=== PATIENT | female | born 1960 | race Caucasian/White ===

== ENCOUNTER 2017-07-14 10:39 | Emergency (ER) | payer MEDICARE, MEDICAID ==
[~2017-07-14] VITALS: Ht 165.1 cm; Wt 59.4 kg
[~2017-07-14 10:39] MED LIST: ALPR-624 PO; BALS750C PO; BUTA1CAP42 PO; ONDA4TAB9 SL; PANT40TA39 PO; SENN-173 PO; TIZA4TAB11 PO; TOPI100T18 PO; ZOLP10TA5 PO
[2017-07-14 10:57] VITALS: BP 142/80
[2017-07-14 11:33] LABS: CLARITY,URINE SLIGHTLY CLOUDY (Clear); COLOR,URINE STRAW (Yellow); GLUCOSE, URINE NEGATIVE (Neg); KETONES,URINE NEGATIVE (Neg); LEUKOCYTE ESTERASE ,URINE NEGATIVE (Neg); NITRITES, URINE NEGATIVE (Neg); OCCULT BLOOD,URINE NEGATIVE (Neg); PROTEIN,URINE NEGATIVE (Neg); UA COLLECTION TYPE CLN CATCH MIDSTREAM; UROBILINOGEN,URINE 0.2 E.U/dL (0.2-1.0)
[2017-07-14 11:42] LABS: BACTERIA,URINE FEW /HPF (Neg); MUCUS STRANDS FEW /LPF (Neg); RBC,URINE 0-2 /HPF (0-2); SQUAMOUS EPITHELIAL CELL,UR MANY /LPF (FEW); WBC,URINE 0-4 /HPF (0-4)
[2017-07-14 11:43] LABS: BASOPHILS % (AUTO) 0.2 % (0-1); EOSINOPHILS # (AUTO) 0.1 X10'3 (0-0.9); EOSINOPHILS % (AUTO) 1.5 % (0-6); HEMATOCRIT 31.7 % (35.0-45.0); HEMOGLOBIN 10.8 g/dl (12.0-16.0); LYMPHOCYTES # (AUTO) 1.5 X10'3 (1.1-4.8); LYMPHOCYTES % (AUTO) 42.1 % (21-51); MEAN CORPUSCULAR HEMOGLOBIN 30.5 PG (27.0-31.0); MEAN CORPUSCULAR HGB CONC 34.2 % (33.0-36.5); MEAN CORPUSCULAR VOLUME 89.3 FL (78-98); MEAN PLATELET VOLUME 7.4 FL (7.4-10.4); MONOCYTES # (AUTO) 0.1 X10'3 (0-0.9); MONOCYTES % (AUTO) 3.9 % (2-12); NEUTROPHILS # (AUTO) 1.9 X10'3 (1.8-7.7); NEUTROPHILS % (AUTO) 52.3 % (42-75); PLATELET COUNT 251 X10'3 (140-440); RED BLOOD COUNT 3.55 X10'6 (4.20-5.60); RED CELL DISTRIBUTION WIDTH 17.7 % (11.5-14.5); WHITE BLOOD COUNT 3.6 X10'3 (4.5-11.0)
[2017-07-14 11:52] LABS: INR 0.9 INR; PROTHROMBIN TIME 9.8 SECONDS (9.0-12.0)
[2017-07-14 11:58] LABS: ALANINE AMINOTRANSFERASE 18 U/L (12-78); ALBUMIN 4.7 G/DL (3.4-5.0); ALBUMIN/GLOBULIN RATIO 1.6 (1.1-1.5); ALKALINE PHOSPHATASE 64 IU/L (46-116); ANION GAP 13 (8-16); ASPARTATE AMINO TRANSFERASE 23 U/L (10-37); BILIRUBIN,TOTAL 0.4 MG/DL (0.1-1.0); BLOOD UREA NITROGEN 18 MG/DL (7-18); BUN/CREATININE RATIO 18.4 (6.6-38.0); CALCIUM 8.9 MG/DL (8.5-10.1); CHLORIDE 107 MMOL/L (99-107); CREATININE 0.98 MG/DL (0.40-0.90); GLUCOSE 102 MG/DL (70-104); POTASSIUM 4.5 MMOL/L (3.5-5.1); SODIUM 141 MMOL/L (135-145); TOTAL CARBON DIOXIDE 20.6 MMOL/L (24-32); TOTAL PROTEIN 7.6 G/DL (6.4-8.2); eGFR 59 ML/MIN
== END 2017-07-14 13:03 | disposition home or self-care (01) ==
LOC: ER 10:39
DX: E78.00 Pure hypercholesterolemia, unspecified (principal); N18.3 Chronic kidney disease, stage 3 (moderate); G89.29 Other chronic pain; Z90.49 Acquired absence of other specified parts of digestive tract; Z98.890 Other specified postprocedural states; Z88.2 Allergy status to sulfonamides; Z79.899 Other long term (current) drug therapy
CPT/HCPCS: 36415; 80053; 81001; 85025; 85610; 99284

== ENCOUNTER 2018-05-31 09:45 | Emergency (ER) | payer MEDICARE, MEDICAID ==
[~2018-05-31] VITALS: Ht 165.1 cm; Wt 55.5 kg
[~2018-05-31 09:45] MED LIST changes: +TOP100T PO; -TOPI100T18 PO
[2018-05-31] MEDS ORDERED: ondansetron/PF 4mg/2ml inj IV ONE (10:05)
[2018-05-31] MEDS ORDERED: normal saline 1000ML IV soln IVB ONE (10:05)
[2018-05-31 10:23] LABS: CLARITY,URINE CLEAR (Clear); COLOR,URINE YELLOW (Yellow); GLUCOSE, URINE NEGATIVE (Neg); KETONES,URINE NEGATIVE (Neg); LEUKOCYTE ESTERASE ,URINE NEGATIVE (Neg); NITRITES, URINE NEGATIVE (Neg); OCCULT BLOOD,URINE NEGATIVE (Neg); PH,URINE 5.5 (4.8-8.0); PROTEIN,URINE NEGATIVE (Neg); UROBILINOGEN,URINE 0.2 E.U/dL (0.2-1.0)
[2018-05-31 10:24] LABS: UA COLLECTION TYPE CLN CATCH MIDSTREAM
[2018-05-31 10:27] LABS: URINE HCG NEGATIVE (NEG)
[2018-05-31] MEDS: morphine 4 MG/ML inj SYRINge IV PRN ×2 (10:29→11:45)
--- NOTE | 2018-05-31 10:32 | NUR ---
morphine and zofran given
[2018-05-31 10:40] LABS: BASOPHILS % (AUTO) 0.8 % (0-1); EOSINOPHILS # (AUTO) 0.1 X10'3 (0-0.9); HEMOGLOBIN 10.5 g/dl (12.0-16.0); MEAN CORPUSCULAR HEMOGLOBIN 32.3 PG (27.0-31.0); MEAN CORPUSCULAR HGB CONC 33.9 g/dL (33.0-36.5); MEAN CORPUSCULAR VOLUME 95.3 FL (78-98); MEAN PLATELET VOLUME 7.2 FL (7.4-10.4); MONOCYTES # (AUTO) 0.2 X10'3 (0-0.9); MONOCYTES % (AUTO) 6.6 % (2-12); NEUTROPHILS # (AUTO) 1.5 X10'3 (1.8-7.7); NEUTROPHILS % (AUTO) 55.6 % (42-75); PLATELET COUNT 250 X10'3 (140-440); RED BLOOD COUNT 3.25 X10'6 (4.20-5.60); RED CELL DISTRIBUTION WIDTH 15.1 % (11.5-14.5); WHITE BLOOD COUNT 2.7 X10'3 (4.5-11.0)
[2018-05-31 10:48] LABS: ALANINE AMINOTRANSFERASE 16 U/L (12-78); ALBUMIN 4.4 G/DL (3.4-5.0); ALBUMIN/GLOBULIN RATIO 1.6 (1.1-1.5); ALKALINE PHOSPHATASE 54 IU/L (46-116); ANION GAP 16 (8-16); ASPARTATE AMINO TRANSFERASE 13 U/L (10-37); BILIRUBIN,TOTAL 0.4 MG/DL (0.1-1.0); BLOOD UREA NITROGEN 17 MG/DL (7-18); BUN/CREATININE RATIO 16.5 (6.6-38.0); CALCIUM 8.7 MG/DL (8.5-10.1); CHLORIDE 105 MMOL/L (99-107); CREATININE 1.03 MG/DL (0.40-0.90); GLUCOSE 105 MG/DL (70-104); LIPASE 237 U/L (73-393); POTASSIUM 3.8 MMOL/L (3.5-5.1); SODIUM 139 MMOL/L (135-145); TOTAL PROTEIN 7.1 G/DL (6.4-8.2); eGFR 55 ML/MIN
[2018-05-31 10:57] LABS: PROTHROMBIN TIME 10.1 SECONDS (9.0-12.0)
[2018-05-31 11:10] LABS: PLATELET ESTIMATE NORMAL; TOTAL CELLS COUNTED 100
[2018-05-31] MEDS ORDERED: famotidine/PF 10 mg/ml inj IV ONE (11:10)
[2018-05-31] MEDS ORDERED: methylPREDNISolone sod succ 125mg/2ml vial IV ONE (11:10)
[2018-05-31] MEDS ORDERED: morphine 4 MG/ML inj SYRINge IV ONE (11:10)
[2018-05-31] MEDS ORDERED: CIPR-260 PO (11:27)
[2018-05-31] MEDS ORDERED: ONDA4TAB6 PO (11:27)
[2018-05-31] MEDS ORDERED: HYDR-4383 PO (11:27)
[2018-05-31] MEDS ORDERED: PRED10TA23 PO (11:27)
[2018-05-31 12:31] VITALS: BP 134/81
== END 2018-05-31 12:15 | disposition home or self-care (01) ==
LOC: ER 09:45
DX: R10.12 Left upper quadrant pain (principal); R10.32 Left lower quadrant pain; R11.0 Nausea; E78.00 Pure hypercholesterolemia, unspecified; N18.9 Chronic kidney disease, unspecified; G89.29 Other chronic pain; Z90.49 Acquired absence of other specified parts of digestive tract; Z90.710 Acquired absence of both cervix and uterus; Z98.890 Other specified postprocedural states; Z88.2 Allergy status to sulfonamides; Z88.8 Allergy status to other drugs, medicaments and biological substances; Z79.899 Other long term (current) drug therapy
CPT/HCPCS: 36415; 74176; 80053; 81003; 81025; 83690; 85025; 85610; 96374; 96375; 96376; 99284; J2270; J2405; J2930; J3490; J7030

== ENCOUNTER 2018-10-25 10:31 | Emergency (ER) | payer MEDICARE, MEDICAID ==
[~2018-10-25] VITALS: Ht 165.1 cm; Wt 56.8 kg
[~2018-10-25 10:31] MED LIST changes: +BUTA-281 PO; +CIPR-260 PO; +HYDR-4383 PO; +MECL-111 PO; +ONDA4TAB6 PO
[2018-10-25] MEDS ORDERED: ondansetron/PF 4mg/2ml inj IV ONE (10:50)
[2018-10-25] MEDS ORDERED: normal saline 1000ML IV soln IVB ONE (10:50)
[2018-10-25] MEDS ORDERED: HYDROcodone/acetaminophen 5mg/325mg tablet PO ONE (11:10)
[2018-10-25] MEDS ORDERED: LORazepam 2 mg/ml vial IV ONE (11:10)
[2018-10-25 11:14] LABS: HEMATOCRIT 27.8 % (35.0-45.0); HEMOGLOBIN 8.7 g/dl (12.0-16.0); MEAN CORPUSCULAR HEMOGLOBIN 27.5 PG (27.0-31.0); MEAN CORPUSCULAR HGB CONC 31.3 g/dL (33.0-36.5); MONOCYTES # (AUTO) 0.2 X10'3 (0-0.9); NEUTROPHILS # (AUTO) 1.3 X10'3 (1.8-7.7); RED BLOOD COUNT 3.16 X10'6 (4.20-5.60)
[2018-10-25 11:15] LABS: MEAN PLATELET VOLUME 7.2 FL (7.4-10.4); PLATELET COUNT 296 X10'3 (140-440); RED CELL DISTRIBUTION WIDTH 17.3 % (11.5-14.5)
[2018-10-25 11:15] LABS: CLARITY,URINE CLEAR (Clear); COLOR,URINE YELLOW (Yellow); GLUCOSE, URINE NEGATIVE (Neg); KETONES,URINE NEGATIVE (Neg); LEUKOCYTE ESTERASE ,URINE NEGATIVE (Neg); NITRITES, URINE NEGATIVE (Neg); OCCULT BLOOD,URINE NEGATIVE (Neg); PH,URINE 5.5 (4.8-8.0); PROTEIN,URINE NEGATIVE (Neg); UROBILINOGEN,URINE 0.2 E.U/dL (0.2-1.0)
[2018-10-25 11:18] LABS: UA COLLECTION TYPE CLN CATCH MIDSTREAM
[2018-10-25 11:20] LABS: WHITE BLOOD COUNT 2.3 X10'3 (4.5-11.0)
[2018-10-25 11:21] LABS: BASOPHILS % (AUTO) 0.6 % (0-1); EOSINOPHILS % (AUTO) 1.2 % (0-6); LYMPHOCYTES # (AUTO) 0.9 X10'3 (1.1-4.8); LYMPHOCYTES % (AUTO) 37.7 % (21-51); MONOCYTES % (AUTO) 6.6 % (2-12); NEUTROPHILS % (AUTO) 53.9 % (42-75)
[2018-10-25 11:25] LABS: URINE HCG NEGATIVE (NEG)
[2018-10-25 11:29] LABS: ALANINE AMINOTRANSFERASE 19 U/L (12-78); ALBUMIN 4.8 G/DL (3.4-5.0); ALBUMIN/GLOBULIN RATIO 1.6 (1.1-1.5); ALKALINE PHOSPHATASE 62 IU/L (46-116); ANION GAP 15 (8-16); ASPARTATE AMINO TRANSFERASE 15 U/L (10-37); BILIRUBIN,TOTAL 0.3 MG/DL (0.1-1.0); BLOOD UREA NITROGEN 15 MG/DL (7-18); BUN/CREATININE RATIO 12.7 (6.6-38.0); CHLORIDE 109 MMOL/L (99-107); CREATININE 1.18 MG/DL (0.40-0.90); GLUCOSE 106 MG/DL (70-104); LIPASE 258 U/L (73-393); POTASSIUM 3.8 MMOL/L (3.5-5.1); SODIUM 141 MMOL/L (135-145); TOTAL CARBON DIOXIDE 17.2 MMOL/L (24-32); TOTAL PROTEIN 7.8 G/DL (6.4-8.2); eGFR 47 ML/MIN
[2018-10-25] MEDS ORDERED: morphine 4 MG/ML inj SYRINge IV ONE (12:05)
[2018-10-25] MEDS ORDERED: diphenhydrAMINE 50 mg/ml inj IV ONE (12:25)
[2018-10-25] MEDS ORDERED: proMETHazine 25mg tablet PO ONE (12:25)
[2018-10-25] MEDS ORDERED: PROM25SU46 RC (13:33)
[2018-10-25] MEDS ORDERED: ONDA8TAB6 PO (13:33)
[2018-10-25] MEDS ORDERED: HYDR-3965 PO (13:33)
[2018-10-25] MEDS ORDERED: ketorolac trometh. 30mg/ml inj. IV ONE (13:35)
[2018-10-25 13:57] LABS: ANISOCYTOSIS 1+; PLATELET ESTIMATE NORMAL; TOTAL CELLS COUNTED 100
[2018-10-25 13:58] VITALS: BP 149/93
[2018-10-25 13:58] LABS: BURR CELLS FEW; ELLIPTOCYTES FEW; SCHISTOCYTES FEW; TEAR DROP CELLS FEW
== END 2018-10-25 14:11 | disposition home or self-care (01) ==
LOC: ER 10:32
DX: K29.00 Acute gastritis without bleeding (principal); D64.9 Anemia, unspecified; E78.00 Pure hypercholesterolemia, unspecified; N18.9 Chronic kidney disease, unspecified; G89.29 Other chronic pain; F41.9 Anxiety disorder, unspecified; Z90.49 Acquired absence of other specified parts of digestive tract; Z90.710 Acquired absence of both cervix and uterus; Z98.890 Other specified postprocedural states; Z88.2 Allergy status to sulfonamides; Z88.6 Allergy status to analgesic agent; Z88.8 Allergy status to other drugs, medicaments and biological substances; Z79.2 Long term (current) use of antibiotics; Z79.899 Other long term (current) drug therapy
CPT/HCPCS: 36415; 74176; 80053; 81003; 81025; 83690; 85025; 85610; 96361; 96374; 96375; 99284; J1200; J1885; J2060; J2270; J2405; J7030; Q0169

== ENCOUNTER 2019-01-08 15:17 | Inpatient (IN) | payer MEDICARE, MEDICAID ==
[~2019-01-08] VITALS: Ht 165.1 cm; Wt 55.0 kg
[~2019-01-08 15:17] MED LIST changes: +ONDA8TAB6 PO; +PROM25SU46 RC
[2019-01-08 16:20] LABS: BASOPHILS % (AUTO) 0.8 % (0-1); EOSINOPHILS # (AUTO) 0.1 X10'3 (0-0.9); EOSINOPHILS % (AUTO) 1.1 % (0-6); LYMPHOCYTES # (AUTO) 1.3 X10'3 (1.1-4.8); LYMPHOCYTES % (AUTO) 26.3 % (21-51); MEAN CORPUSCULAR HEMOGLOBIN 23.7 PG (27.0-31.0); MEAN CORPUSCULAR HGB CONC 30.4 g/dL (33.0-36.5); MEAN CORPUSCULAR VOLUME 77.9 FL (78-98); MEAN PLATELET VOLUME 7.6 FL (7.4-10.4); MONOCYTES # (AUTO) 0.2 X10'3 (0-0.9); MONOCYTES % (AUTO) 4.1 % (2-12); NEUTROPHILS # (AUTO) 3.3 X10'3 (1.8-7.7); NEUTROPHILS % (AUTO) 67.7 % (42-75); PLATELET COUNT 238 X10'3 (140-440); RED BLOOD COUNT 2.55 X10'6 (4.20-5.60); RED CELL DISTRIBUTION WIDTH 18.1 % (11.5-14.5); WHITE BLOOD COUNT 4.8 X10'3 (4.5-11.0)
[2019-01-08 16:23] LABS: HEMATOCRIT 19.8 % (35.0-45.0)
[2019-01-08 16:45] LABS: ALANINE AMINOTRANSFERASE 28 U/L (12-78); ALBUMIN 4.6 G/DL (3.4-5.0); ALBUMIN/GLOBULIN RATIO 1.5 (1.1-1.5); ALKALINE PHOSPHATASE 84 IU/L (46-116); ANION GAP 12 (8-16); ASPARTATE AMINO TRANSFERASE 25 U/L (10-37); BILIRUBIN,TOTAL 0.2 MG/DL (0.1-1.0); BLOOD UREA NITROGEN 12 MG/DL (7-18); BUN/CREATININE RATIO 13.3 (6.6-38.0); CALCIUM 8.8 MG/DL (8.5-10.1); CHLORIDE 109 MMOL/L (99-107); GLUCOSE 97 MG/DL (70-104); POTASSIUM 3.7 MMOL/L (3.5-5.1); SODIUM 142 MMOL/L (135-145); TOTAL CARBON DIOXIDE 21.1 MMOL/L (24-32); TOTAL PROTEIN 7.7 G/DL (6.4-8.2); eGFR 65 ML/MIN
[2019-01-08 17:01] LABS: ANISOCYTOSIS 2+; HYPOCHROMASIA 2+; MICROCYTOSIS 1+; PLATELET ESTIMATE NORMAL; TEAR DROP CELLS FEW
[2019-01-08 17:02] LABS: ELLIPTOCYTES FEW
[2019-01-08 17:14] LABS: CLARITY,URINE CLEAR (Clear); COLOR,URINE STRAW (Yellow); GLUCOSE, URINE NEGATIVE (Neg); KETONES,URINE NEGATIVE (Neg); LEUKOCYTE ESTERASE ,URINE NEGATIVE (Neg); NITRITES, URINE NEGATIVE (Neg); OCCULT BLOOD,URINE NEGATIVE (Neg); PH,URINE 5.5 (4.8-8.0); PROTEIN,URINE NEGATIVE (Neg); UROBILINOGEN,URINE 0.2 E.U/dL (0.2-1.0)
[2019-01-08 17:15] LABS: URINE HCG NEGATIVE (NEG)
[2019-01-08 17:18] LABS: UA COLLECTION TYPE CLN CATCH MIDSTREAM
[2019-01-08] MEDS ORDERED: morphine 4 MG/ML inj SYRINge IV ONE (19:00)
[2019-01-08] MEDS ORDERED: morphine 10mg/ml inj. IV ONE (19:00)
[2019-01-08] MEDS ORDERED: ondansetron/PF 4mg/2ml inj IV ONE (19:25)
[2019-01-08] MEDS ORDERED: magnesium Cl slow-release 64mg tablet PO PRN (19:45)
[2019-01-08] MEDS ORDERED: acetaminophen 325mg tablet PO PRN (19:45)
[2019-01-08] MEDS ORDERED: magnesium 4gm in 100ml NS 100 ML IV PRN (19:45)
[2019-01-08] MEDS ORDERED: magnesium 2GM in 50ml NS 50 ML IV PRN (19:45)
[2019-01-08] MEDS ORDERED: potassium Cl 20 mEq SR tablet PO PRN (19:45)
[2019-01-08] MEDS ORDERED: potassium CL 10mEq/100ml bag 100 ML IV PRN ×2 (19:45)
[2019-01-08] MEDS ORDERED: magnesium hydroxide 30ml (MOM) UD suspension PO PRN (19:45)
[2019-01-08 20:46] VITALS: BP 154/92
[2019-01-08] MEDS: normal saline 1000ml 1,000 ML IV SCH (20:50)
[2019-01-08] MEDS: methylPREDNISolone sod succ/PF 40mg inj. IV SCH ×2 (20:50→23:14)
[2019-01-08] MEDS: pantoprazole 40MG/NS 100ML BAG 100 ML IV SCH (20:50)
[2019-01-08 20:53] LABS: MEAN CORPUSCULAR HEMOGLOBIN 23.5 PG (27.0-31.0); MEAN CORPUSCULAR HGB CONC 30.4 g/dL (33.0-36.5); MEAN CORPUSCULAR VOLUME 77.5 FL (78-98); MEAN PLATELET VOLUME 7.8 FL (7.4-10.4); PLATELET COUNT 269 X10'3 (140-440); RED CELL DISTRIBUTION WIDTH 18.1 % (11.5-14.5); WHITE BLOOD COUNT 6.4 X10'3 (4.5-11.0)
[2019-01-08 20:58] LABS: HEMATOCRIT 19.3 % (35.0-45.0); HEMOGLOBIN 5.9 g/dl (12.0-16.0)
[2019-01-08] MEDS: ALPRAZolam 0.5mg tablet PO PRN (20:58)
[2019-01-08] MEDS ORDERED: zolpidem 5mg tablet PO SCH (21:00)
[2019-01-08 21:02] VITALS: BP 141/78
[2019-01-08 21:17] VITALS: BP 140/81
--- NOTE | 2019-01-08 21:27 | NUR ---
Received report from MICHELE Lozano. Awaiting patient arrival to the floor.
[2019-01-08 21:45] VITALS: BP 147/84
--- NOTE | 2019-01-08 21:45 | NUR ---
Patient arrived to the floor via adalidrvahe accompanied by MICHELE Craft. Placed in room 347A. Patient is awake and alert on room air, in no apparent distress. Call light and items of frequent use within reach. Will continue to monitor.
[2019-01-08] MEDS: diatr meglu/diatrizoate 30ml oral sol.-(3 dose) bottle PO SCH (22:00)
[2019-01-08 22:20] VITALS: BP 150/82
[2019-01-08] MEDS: ondansetron/PF 4mg/2ml inj IV PRN (23:14)
[2019-01-08] MEDS: HYDROmorphone inj. 0.5 MG/0.5 ML DISP.SYRIN IV PRN (23:15)
[2019-01-08 23:34] VITALS: BP 139/81
[2019-01-09] VITALS (9 sets, daily range): BP systolic 109–164; BP diastolic 79–87
[2019-01-09] MEDS: pantoprazole 40MG/NS 100ML BAG 100 ML IV SCH ×6 (01:58→22:39)
[2019-01-09] MEDS ORDERED: ZOLP10TA5 PO (03:05)
[2019-01-09] MEDS ORDERED: TIZA4TAB11 PO (03:05)
[2019-01-09] MEDS ORDERED: TOP100T PO ×2 (03:05→03:13)
[2019-01-09] MEDS: HYDROmorphone inj. 0.5 MG/0.5 ML DISP.SYRIN IV PRN ×2 (03:35→08:25)
[2019-01-09 05:40] LABS: HEMATOCRIT 26.7 % (35.0-45.0); HEMOGLOBIN 8.6 g/dl (12.0-16.0); MEAN CORPUSCULAR HEMOGLOBIN 26.5 PG (27.0-31.0); MEAN CORPUSCULAR HGB CONC 32.3 g/dL (33.0-36.5); MEAN PLATELET VOLUME 8.2 FL (7.4-10.4); PLATELET COUNT 194 X10'3 (140-440); RED BLOOD COUNT 3.26 X10'6 (4.20-5.60); RED CELL DISTRIBUTION WIDTH 17.2 % (11.5-14.5); WHITE BLOOD COUNT 5.4 X10'3 (4.5-11.0)
[2019-01-09] MEDS: normal saline 1000ml 1,000 ML IV SCH ×3 (05:45→17:30)
[2019-01-09 05:56] LABS: ALANINE AMINOTRANSFERASE 25 U/L (12-78); ALBUMIN 3.9 G/DL (3.4-5.0); ALBUMIN/GLOBULIN RATIO 1.3 (1.1-1.5); ALKALINE PHOSPHATASE 78 IU/L (46-116); ANION GAP 13 (8-16); ASPARTATE AMINO TRANSFERASE 19 U/L (10-37); BILIRUBIN,TOTAL 0.3 MG/DL (0.1-1.0); BLOOD UREA NITROGEN 10 MG/DL (7-18); BUN/CREATININE RATIO 12.8 (6.6-38.0); CHLORIDE 109 MMOL/L (99-107); CREATININE 0.78 MG/DL (0.40-0.90); GLUCOSE 125 MG/DL (70-104); MAGNESIUM 1.8 MG/DL (1.5-2.4); POTASSIUM 3.7 MMOL/L (3.5-5.1); SODIUM 141 MMOL/L (135-145); TOTAL CARBON DIOXIDE 18.9 MMOL/L (24-32); TOTAL PROTEIN 6.9 G/DL (6.4-8.2); eGFR 76 ML/MIN
--- NOTE | 2019-01-09 06:35 | NUR ---
Problems reprioritized. Patient report given, questions answered & plan of care reviewed with MICHELE Brush.
[2019-01-09] MEDS: diatr meglu/diatrizoate 30ml oral sol.-(3 dose) bottle PO SCH ×2 (07:11→10:49)
[2019-01-09] MEDS: K and/or MAG REPLACEMENT MC SCH (08:00)
[2019-01-09] MEDS ORDERED: tizanidine 4mg tablet PO PRN (08:00)
[2019-01-09] MEDS: Balsalazide Disodium 750 MG CAPSULE PO SCH ×3 (08:00→21:14)
[2019-01-09 08:02] LABS: HEMATOCRIT 31.3 % (35.0-45.0); MEAN CORPUSCULAR HEMOGLOBIN 26.1 PG (27.0-31.0); MEAN CORPUSCULAR HGB CONC 31.8 g/dL (33.0-36.5); MEAN CORPUSCULAR VOLUME 81.9 FL (78-98); MEAN PLATELET VOLUME 8.1 FL (7.4-10.4); PLATELET COUNT 221 X10'3 (140-440); RED BLOOD COUNT 3.82 X10'6 (4.20-5.60); RED CELL DISTRIBUTION WIDTH 17.5 % (11.5-14.5); WHITE BLOOD COUNT 5.9 X10'3 (4.5-11.0)
--- NOTE | 2019-01-09 08:22 | NUR ---
Page sent to regarding PRN rx for headache. PAGER ID: [phone] MESSAGE: re [phone] Irasema Dunn. patient c/o headache and is requesting Tylenol. thank you, Mona,[phone]
[2019-01-09] MEDS: ondansetron/PF 4mg/2ml inj IV PRN ×3 (08:24→21:57)
[2019-01-09] MEDS: methylPREDNISolone sod succ/PF 40mg inj. IV SCH ×3 (08:24→23:28)
[2019-01-09] MEDS: topiramate 100mg tablet PO SCH ×2 (08:24→20:54)
[2019-01-09] MEDS ORDERED: iohexol 300mg/ml 100ml inj. ONE (08:55)
[2019-01-09 13:23] LABS: HEMATOCRIT 26.5 % (35.0-45.0); HEMOGLOBIN 8.5 g/dl (12.0-16.0); MEAN CORPUSCULAR HEMOGLOBIN 26.2 PG (27.0-31.0); MEAN CORPUSCULAR HGB CONC 32.1 g/dL (33.0-36.5); MEAN CORPUSCULAR VOLUME 81.6 FL (78-98); MEAN PLATELET VOLUME 7.5 FL (7.4-10.4); PLATELET COUNT 201 X10'3 (140-440); RED BLOOD COUNT 3.25 X10'6 (4.20-5.60); RED CELL DISTRIBUTION WIDTH 17.2 % (11.5-14.5)
[2019-01-09] MEDS: acetaminophen 325mg tablet PO PRN ×2 (13:48→21:17)
[2019-01-09] MEDS: ALPRAZolam 0.5mg tablet PO PRN (16:32)
[2019-01-09] MEDS ORDERED: PEG 3350/Na sulf,bicarb,Cl/KCl oral sol 4 liter bottle PO ONE (17:05)
--- NOTE | 2019-01-09 18:27 | NUR ---
Problems reprioritized. Patient report given, questions answered & plan of care reviewed with MICHELE Dorsey.
[2019-01-09 20:01] LABS: HEMATOCRIT 26.4 % (35.0-45.0); HEMOGLOBIN 8.6 g/dl (12.0-16.0); MEAN CORPUSCULAR HEMOGLOBIN 26.1 PG (27.0-31.0); MEAN CORPUSCULAR HGB CONC 32.7 g/dL (33.0-36.5); MEAN CORPUSCULAR VOLUME 79.8 FL (78-98); MEAN PLATELET VOLUME 7.4 FL (7.4-10.4); PLATELET COUNT 211 X10'3 (140-440); RED CELL DISTRIBUTION WIDTH 17.4 % (11.5-14.5); WHITE BLOOD COUNT 5.3 X10'3 (4.5-11.0)
[2019-01-09] MEDS: HYDROmorphone 1 mg/ml syringe IV PRN (20:55)
[2019-01-09] MEDS ORDERED: zolpidem 5mg tablet PO PRN (21:00)
--- NOTE | 2019-01-09 21:39 | NUR ---
Patient in room [facility] 347. I have received report from MICHELE Dunn and had the opportunity to ask questions and assume patient care. Addendum: 01/09/19 at 2143 by Suntia Clemente RN Amended: Links added.
[2019-01-10] VITALS (7 sets, daily range): BP systolic 138–163; BP diastolic 79–95
[2019-01-10] MEDS: ALPRAZolam 0.5mg tablet PO PRN ×2 (00:04→20:10)
[2019-01-10] MEDS: normal saline 1000ml 1,000 ML IV SCH ×2 (01:57→14:30)
[2019-01-10] MEDS: HYDROmorphone 1 mg/ml syringe IV PRN ×4 (01:58→22:04)
[2019-01-10 02:13] LABS: HEMATOCRIT 23.8 % (35.0-45.0); HEMOGLOBIN 7.7 g/dl (12.0-16.0); MEAN CORPUSCULAR HEMOGLOBIN 26.3 PG (27.0-31.0); MEAN CORPUSCULAR HGB CONC 32.6 g/dL (33.0-36.5); MEAN CORPUSCULAR VOLUME 80.8 FL (78-98); MEAN PLATELET VOLUME 7.6 FL (7.4-10.4); PLATELET COUNT 188 X10'3 (140-440); RED BLOOD COUNT 2.94 X10'6 (4.20-5.60); RED CELL DISTRIBUTION WIDTH 17.7 % (11.5-14.5); WHITE BLOOD COUNT 4.4 X10'3 (4.5-11.0)
[2019-01-10 02:25] LABS: ANION GAP 10 (8-16); BLOOD UREA NITROGEN 6 MG/DL (7-18); BUN/CREATININE RATIO 9.2 (6.6-38.0); CHLORIDE 107 MMOL/L (99-107); CREATININE 0.65 MG/DL (0.40-0.90); GLUCOSE 121 MG/DL (70-104); POTASSIUM 3.6 MMOL/L (3.5-5.1); SODIUM 139 MMOL/L (135-145); TOTAL CARBON DIOXIDE 22.5 MMOL/L (24-32)
[2019-01-10 02:26] LABS: ALANINE AMINOTRANSFERASE 22 U/L (12-78); ALBUMIN 3.6 G/DL (3.4-5.0); ALBUMIN/GLOBULIN RATIO 1.3 (1.1-1.5); ALKALINE PHOSPHATASE 68 IU/L (46-116); ASPARTATE AMINO TRANSFERASE 14 U/L (10-37); BILIRUBIN,TOTAL 0.3 MG/DL (0.1-1.0); CALCIUM 7.8 MG/DL (8.5-10.1); MAGNESIUM 1.8 MG/DL (1.5-2.4); TOTAL PROTEIN 6.3 G/DL (6.4-8.2); eGFR > 90 ML/MIN
[2019-01-10] MEDS: pantoprazole 40MG/NS 100ML BAG 100 ML IV SCH (03:44)
--- NOTE | 2019-01-10 06:07 | NUR ---
Problems reprioritized. Patient report given, questions answered & plan of care reviewed with MICHELE Morgan. Addendum: 01/10/19 at 0607 by Sunita Clemente RN Amended: Links added.
--- NOTE | 2019-01-10 06:29 | NUR ---
Patient in room [facility] 347. I have received report from Sunita BAUTISTA and had the opportunity to ask questions and assume patient care.
[2019-01-10] MEDS: topiramate 100mg tablet PO SCH ×2 (07:21→20:10)
[2019-01-10] MEDS: acetaminophen 325mg tablet PO PRN ×2 (07:21→22:06)
[2019-01-10] MEDS: methylPREDNISolone sod succ/PF 40mg inj. IV SCH (07:21)
[2019-01-10] MEDS: ondansetron/PF 4mg/2ml inj IV PRN ×2 (07:22→22:00)
[2019-01-10] MEDS: K and/or MAG REPLACEMENT MC SCH (08:00)
[2019-01-10] MEDS: Balsalazide Disodium 750 MG CAPSULE PO SCH ×3 (08:00→21:52)
[2019-01-10 08:24] LABS: HEMATOCRIT 23.8 % (35.0-45.0); HEMOGLOBIN 7.7 g/dl (12.0-16.0); MEAN CORPUSCULAR HEMOGLOBIN 26.3 PG (27.0-31.0); MEAN CORPUSCULAR HGB CONC 32.4 g/dL (33.0-36.5); MEAN CORPUSCULAR VOLUME 81.2 FL (78-98); MEAN PLATELET VOLUME 7.9 FL (7.4-10.4); PLATELET COUNT 186 X10'3 (140-440); RED BLOOD COUNT 2.93 X10'6 (4.20-5.60); RED CELL DISTRIBUTION WIDTH 17.6 % (11.5-14.5)
[2019-01-10] MEDS ORDERED: MIDAZolam 5mg/5ml vial ONE (09:00)
[2019-01-10] MEDS ORDERED: fentaNYL/PF 50MCG/1 ML 2ML syringe ONE (09:00)
[2019-01-10] MEDS ORDERED: LIDOcaine Viscous 15ml cup ONE (09:00)
[2019-01-10] MEDS: sucralfate 1 gm tablet PO SCH ×2 (16:21→20:10)
[2019-01-10] MEDS: pantoprazole 40mg Tablet.DR PO SCH (16:21)
[2019-01-10 16:42] LABS: HEMATOCRIT 24.2 % (35.0-45.0); HEMOGLOBIN 7.8 g/dl (12.0-16.0); MEAN CORPUSCULAR HEMOGLOBIN 26.1 PG (27.0-31.0); MEAN CORPUSCULAR HGB CONC 32.2 g/dL (33.0-36.5); MEAN CORPUSCULAR VOLUME 81.1 FL (78-98); MEAN PLATELET VOLUME 7.8 FL (7.4-10.4); PLATELET COUNT 186 X10'3 (140-440); RED BLOOD COUNT 2.98 X10'6 (4.20-5.60); RED CELL DISTRIBUTION WIDTH 17.7 % (11.5-14.5); WHITE BLOOD COUNT 5.4 X10'3 (4.5-11.0)
--- NOTE | 2019-01-10 18:56 | NUR ---
Problems reprioritized. Patient report given, questions answered & plan of care reviewed with Pat RN.
[2019-01-10 22:35] LABS: HEMATOCRIT 24.9 % (35.0-45.0); HEMOGLOBIN 7.9 g/dl (12.0-16.0); MEAN CORPUSCULAR HGB CONC 31.6 g/dL (33.0-36.5); MEAN CORPUSCULAR VOLUME 82.2 FL (78-98); MEAN PLATELET VOLUME 7.7 FL (7.4-10.4); PLATELET COUNT 187 X10'3 (140-440); RED BLOOD COUNT 3.03 X10'6 (4.20-5.60); RED CELL DISTRIBUTION WIDTH 18.2 % (11.5-14.5)
[2019-01-10] MEDS: diphenhydrAMINE 25mg capsule PO PRN (23:27)
[2019-01-11] VITALS: BP 145/86
[2019-01-11] MEDS: normal saline 1000ml 1,000 ML IV SCH (01:42)
[2019-01-11] MEDS: ondansetron/PF 4mg/2ml inj IV PRN ×2 (04:35→10:28)
[2019-01-11] MEDS: HYDROmorphone 1 mg/ml syringe IV PRN ×3 (04:36→14:26)
[2019-01-11 05:13] LABS: ALANINE AMINOTRANSFERASE 22 U/L (12-78); ALBUMIN 3.7 G/DL (3.4-5.0); ALBUMIN/GLOBULIN RATIO 1.4 (1.1-1.5); ALKALINE PHOSPHATASE 66 IU/L (46-116); ANION GAP 10 (8-16); ASPARTATE AMINO TRANSFERASE 16 U/L (10-37); BILIRUBIN,TOTAL 0.3 MG/DL (0.1-1.0); BLOOD UREA NITROGEN 4 MG/DL (7-18); BUN/CREATININE RATIO 4.8 (6.6-38.0); CHLORIDE 109 MMOL/L (99-107); CREATININE 0.83 MG/DL (0.40-0.90); GLUCOSE 101 MG/DL (70-104); MAGNESIUM 2.1 MG/DL (1.5-2.4); SODIUM 143 MMOL/L (135-145); TOTAL CARBON DIOXIDE 23.6 MMOL/L (24-32); TOTAL PROTEIN 6.3 G/DL (6.4-8.2); eGFR 71 ML/MIN
[2019-01-11 05:25] LABS: BASOPHILS % (AUTO) 0.3 % (0-1); EOSINOPHILS % (AUTO) 0.8 % (0-6); HEMATOCRIT 25.7 % (35.0-45.0); HEMOGLOBIN 8.2 g/dl (12.0-16.0); LYMPHOCYTES # (AUTO) 1.8 X10'3 (1.1-4.8); LYMPHOCYTES % (AUTO) 36.1 % (21-51); MEAN CORPUSCULAR HEMOGLOBIN 26.1 PG (27.0-31.0); MEAN CORPUSCULAR HGB CONC 31.9 g/dL (33.0-36.5); MEAN CORPUSCULAR VOLUME 81.8 FL (78-98); MONOCYTES # (AUTO) 0.3 X10'3 (0-0.9); MONOCYTES % (AUTO) 5.9 % (2-12); NEUTROPHILS # (AUTO) 2.8 X10'3 (1.8-7.7); NEUTROPHILS % (AUTO) 56.9 % (42-75); PLATELET COUNT 199 X10'3 (140-440); RED BLOOD COUNT 3.14 X10'6 (4.20-5.60); RED CELL DISTRIBUTION WIDTH 17.8 % (11.5-14.5); WHITE BLOOD COUNT 4.9 X10'3 (4.5-11.0)
[2019-01-11] MEDS: sucralfate 1 gm tablet PO SCH ×3 (07:32→16:52)
[2019-01-11] MEDS: pantoprazole 40mg Tablet.DR PO SCH ×2 (07:32→16:52)
[2019-01-11] MEDS: Balsalazide Disodium 750 MG CAPSULE PO SCH ×2 (07:32→12:04)
[2019-01-11] MEDS: topiramate 100mg tablet PO SCH (07:32)
[2019-01-11] MEDS: potassium Cl 20 mEq SR tablet PO PRN ×3 (07:35→15:59)
[2019-01-11] MEDS: K and/or MAG REPLACEMENT MC SCH (07:36)
[2019-01-11 08:00] VITALS: BP 124/79
[2019-01-11] MEDS: ALPRAZolam 0.5mg tablet PO PRN (10:26)
[2019-01-11] MEDS: diphenhydrAMINE 25mg capsule PO PRN (10:26)
[2019-01-11 11:00] VITALS: BP 170/84
[2019-01-11] MEDS ORDERED: FERR324T4 PO (11:12)
[2019-01-11] MEDS ORDERED: POTA20TA10 PO (11:12)
[2019-01-11 13:00] VITALS: BP 138/80
--- NOTE | 2019-01-11 18:35 | NUR ---
PT DISCHARGED HOME WITH FAMILY. SHE APPEARS STABLE ALTHOUGH STILL SLIGHTLY PAINFUL FROM FLAIR UP OF COLITIS. H&H STABLE. MEDS TRANSMITTED TO PHARMACY, PT WILL HALF SECTION IRONER. HOME MEDS WERE RETRIEVED FROM OUR PHARMACY AND GIVEN BACK TO PT. IV TAKEN OUT, NO TELE. ALL BELONGINGS TAKEN FROM ROOM. PT EDUCATED ABOUT USE OF OVER THE COUNTER PAIN MEDICATIONS AND COMPLICATIONS OF NSAIDS AND TYLENOL IN HIGH DOSES SHE HAS BEEN TAKING. PT WILL F/U WITH PCP OR COME BACK TO ER WITH ANY EMERGENT PROBLEMS. BROUGHT DOWN TO FAMILY'S CAR BY [employer] DRESSMAKER AIDDylan VALERA.
== END 2019-01-11 18:30 | disposition home or self-care (01) | DRG 386 ==
LOC: ER 15:17 → EDBEDREQTM 20:07 → ED HOLD 20:43 → EDBEDREQ 21:01 → SUR 3N 21:30
PROVIDERS: ADMIT Family Medicine; ATTEND Internal Medicine
PROC: 30233N1 Transfusion of Nonautologous Red Blood Cells into Peripheral Vein, Percutaneous Approach (ICD-10-PCS; 2019-01-08)
PROC: 30233N1 Transfusion of Nonautologous Red Blood Cells into Peripheral Vein, Percutaneous Approach (ICD-10-PCS; principal; 2019-01-09)
PROC: BW211ZZ Computerized Tomography (CT Scan) of Abdomen and Pelvis using Low Osmolar Contrast (ICD-10-PCS; 2019-01-09)
PROC: 0DB68ZX Excision of Stomach, Via Natural or Artificial Opening Endoscopic, Diagnostic (ICD-10-PCS; 2019-01-10)
PROC: 0DJD8ZZ Inspection of Lower Intestinal Tract, Via Natural or Artificial Opening Endoscopic (ICD-10-PCS; 2019-01-10)
DX: K51.911 Ulcerative colitis, unspecified with rectal bleeding (principal); D80.3 Selective deficiency of immunoglobulin G [IgG] subclasses; D64.9 Anemia, unspecified; E78.00 Pure hypercholesterolemia, unspecified; F32.9 Major depressive disorder, single episode, unspecified; F41.9 Anxiety disorder, unspecified; G89.29 Other chronic pain; K29.50 Unspecified chronic gastritis without bleeding; E78.5 Hyperlipidemia, unspecified; J32.9 Chronic sinusitis, unspecified; K22.8 Other specified diseases of esophagus; T39.395A Adverse effect of other nonsteroidal anti-inflammatory drugs [NSAID], initial encounter; K44.9 Diaphragmatic hernia without obstruction or gangrene; N18.9 Chronic kidney disease, unspecified; Z82.49 Family history of ischemic heart disease and other diseases of the circulatory system; Z88.2 Allergy status to sulfonamides; Z88.8 Allergy status to other drugs, medicaments and biological substances; Z90.49 Acquired absence of other specified parts of digestive tract; Z90.710 Acquired absence of both cervix and uterus; Z98.891 History of uterine scar from previous surgery; Z90.722 Acquired absence of ovaries, bilateral; Z98.0 Intestinal bypass and anastomosis status; Y92.89 Other specified places as the place of occurrence of the external cause
CPT/HCPCS: 36415; 43239; 45330; 74177; 80053; 81003; 81025; 83735; 84132; 85025; 85027; 85610; 86885; 86900; 86901; 86920; 87081; 88305; 93005; 96374; 96375; 99152; 99153; 99285; A4620; C9113; G0378; J1170; J2250; J2270; J2405; J2920; J3010; J7030; J7040; P9016; Q0163; Q9963; Q9967

== ENCOUNTER 2019-05-28 15:51 | Emergency (ER) | payer MEDICARE, MEDICAID ==
[~2019-05-28] VITALS: Ht 165.1 cm; Wt 54.8 kg
[~2019-05-28 15:51] MED LIST changes: -ALPR-624 PO; -BUTA-281 PO; -CIPR-260 PO; +FERR324T4 PO; -HYDR-4383 PO; -MECL-111 PO; -ONDA4TAB6 PO; -ONDA8TAB6 PO; +POTA20TA10 PO; -PROM25SU46 RC; -SENN-173 PO
[2019-05-28 17:50] LABS: BASOPHILS % (AUTO) 0.8 % (0-1); EOSINOPHILS % (AUTO) 1.3 % (0-6); HEMATOCRIT 33.7 % (35.0-45.0); HEMOGLOBIN 10.7 g/dl (12.0-16.0); LYMPHOCYTES % (AUTO) 27.6 % (21-51); MEAN CORPUSCULAR HEMOGLOBIN 27.8 PG (27.0-31.0); MEAN CORPUSCULAR HGB CONC 31.8 g/dL (33.0-36.5); MEAN CORPUSCULAR VOLUME 87.5 FL (78-98); MEAN PLATELET VOLUME 7.2 FL (7.4-10.4); MONOCYTES # (AUTO) 0.2 X10'3 (0-0.9); MONOCYTES % (AUTO) 5.4 % (2-12); NEUTROPHILS # (AUTO) 2.3 X10'3 (1.8-7.7); NEUTROPHILS % (AUTO) 64.9 % (42-75); PLATELET COUNT 361 X10'3 (140-440); RED BLOOD COUNT 3.85 X10'6 (4.20-5.60); RED CELL DISTRIBUTION WIDTH 17.8 % (11.5-14.5); WHITE BLOOD COUNT 3.6 X10'3 (4.5-11.0)
[2019-05-28 17:58] LABS: CLARITY,URINE CLEAR (Clear); COLOR,URINE YELLOW (Yellow); GLUCOSE, URINE NEGATIVE (Neg); KETONES,URINE NEGATIVE (Neg); LEUKOCYTE ESTERASE ,URINE NEGATIVE (Neg); NITRITES, URINE NEGATIVE (Neg); OCCULT BLOOD,URINE NEGATIVE (Neg); PROTEIN,URINE NEGATIVE (Neg); URINE HCG NEGATIVE (NEG); UROBILINOGEN,URINE 0.2 E.U/dL (0.2-1.0)
[2019-05-28 18:06] LABS: ALANINE AMINOTRANSFERASE 23 U/L (12-78); ALBUMIN 4.9 G/DL (3.4-5.0); ALBUMIN/GLOBULIN RATIO 1.6 (1.1-1.5); ALKALINE PHOSPHATASE 82 IU/L (46-116); ANION GAP 12 (8-16); ASPARTATE AMINO TRANSFERASE 13 U/L (10-37); BILIRUBIN,TOTAL 0.2 MG/DL (0.1-1.0); BLOOD UREA NITROGEN 19 MG/DL (7-18); BUN/CREATININE RATIO 18.6 (6.6-38.0); CHLORIDE 110 MMOL/L (99-107); CREATININE 1.02 MG/DL (0.40-0.90); GLUCOSE 108 MG/DL (70-104); LIPASE 270 U/L (73-393); POTASSIUM 4.2 MMOL/L (3.5-5.1); SODIUM 144 MMOL/L (135-145); TOTAL CARBON DIOXIDE 21.9 MMOL/L (24-32); TOTAL PROTEIN 7.9 G/DL (6.4-8.2); eGFR 56 ML/MIN
[2019-05-28 18:07] LABS: UA COLLECTION TYPE VOIDED
[2019-05-28] MEDS ORDERED: ketorolac tromethamine 15mg/ml inj. IV ONE (21:40)
[2019-05-28] MEDS ORDERED: mag hydrox/Alum hydrox/simeth 30ml oral suspension PO ONE (21:40)
[2019-05-28] MEDS ORDERED: dicyclomine 10 MG capsule PO ONE (21:40)
[2019-05-28] MEDS ORDERED: normal saline 1000ML IV soln IVB ONE (21:40)
[2019-05-28] MEDS ORDERED: morphine 4 MG/ML inj SYRINge IV ONE (22:50)
[2019-05-28 23:11] VITALS: BP 154/85
[2019-05-28] MEDS ORDERED: MISO100T47 PO (23:29)
[2019-05-28] MEDS ORDERED: DICY10CA88 PO (23:29)
[2019-05-29 12:32] LABS: OCCULT BLOOD STOOL NEGATIVE (Neg)
== END 2019-05-28 23:43 | disposition home or self-care (01) ==
LOC: ER 15:51
DX: R10.13 Epigastric pain (principal); R19.7 Diarrhea, unspecified; E78.00 Pure hypercholesterolemia, unspecified; N18.9 Chronic kidney disease, unspecified; G89.29 Other chronic pain; R07.89 Other chest pain; F41.9 Anxiety disorder, unspecified; R11.0 Nausea; Z90.49 Acquired absence of other specified parts of digestive tract; Z90.710 Acquired absence of both cervix and uterus; Z87.59 Personal history of other complications of pregnancy, childbirth and the puerperium; Z98.890 Other specified postprocedural states; Z72.89 Other problems related to lifestyle; Z88.2 Allergy status to sulfonamides; Z88.8 Allergy status to other drugs, medicaments and biological substances; Z79.899 Other long term (current) drug therapy
CPT/HCPCS: 36415; 74176; 80053; 81003; 81025; 82272; 83690; 85025; 96361; 96374; 96375; 99284; J1885; J2270; J7030

== ENCOUNTER 2019-09-02 21:31 | Inpatient (IN) | payer MEDICARE, MEDICAID ==
[~2019-09-02] VITALS: Ht 165.1 cm; Wt 59.1 kg
[~2019-09-02 21:31] MED LIST changes: +DICY10CA88 PO; +MISO100T47 PO
[2019-09-02] MEDS ORDERED: pantoprazole 40 MG vial IV ONE (22:00)
[2019-09-02] MEDS ORDERED: normal saline 1000ML IV soln IVB ONE ×2 (22:00→22:30)
[2019-09-02] MEDS ORDERED: morphine 2 MG/ML inj. syringe IV PRN ×2 (22:00→23:30)
[2019-09-02] MEDS: morphine 4 MG/ML inj SYRINge IV PRN ×3 (22:16→23:53)
[2019-09-02 22:30] LABS: BASOPHILS % (AUTO) 0.3 % (0-1); EOSINOPHILS % (AUTO) 0.2 % (0-6); HEMATOCRIT 22.6 % (35.0-45.0); HEMOGLOBIN 7.2 g/dl (12.0-16.0); LYMPHOCYTES # (AUTO) 1.7 X10'3 (1.1-4.8); LYMPHOCYTES % (AUTO) 21.1 % (21-51); MEAN CORPUSCULAR HEMOGLOBIN 30.2 PG (27.0-31.0); MEAN CORPUSCULAR VOLUME 94.2 FL (78-98); MEAN PLATELET VOLUME 7.6 FL (7.4-10.4); MONOCYTES # (AUTO) 0.4 X10'3 (0-0.9); MONOCYTES % (AUTO) 5.4 % (2-12); NEUTROPHILS # (AUTO) 5.8 X10'3 (1.8-7.7); PLATELET COUNT 261 X10'3 (140-440); RED CELL DISTRIBUTION WIDTH 18.1 % (11.5-14.5); WHITE BLOOD COUNT 7.9 X10'3 (4.5-11.0)
[2019-09-02 22:33] LABS: ALANINE AMINOTRANSFERASE 22 U/L (12-78); ALBUMIN 4.1 G/DL (3.4-5.0); ALBUMIN/GLOBULIN RATIO 1.4 (1.1-1.5); ALKALINE PHOSPHATASE 56 IU/L (46-116); ANION GAP 17 (8-16); ASPARTATE AMINO TRANSFERASE 16 U/L (10-37); BILIRUBIN,TOTAL 0.4 MG/DL (0.1-1.0); BLOOD UREA NITROGEN 25 MG/DL (7-18); BUN/CREATININE RATIO 16.4 (6.6-38.0); CALCIUM 8.3 MG/DL (8.5-10.1); CHLORIDE 111 MMOL/L (99-107); CREATININE 1.52 MG/DL (0.40-0.90); ETHANOL < 0.010 GM/DL (0.0-0.010); GLUCOSE 121 MG/DL (70-104); LIPASE 246 U/L (73-393); MAGNESIUM 2.2 MG/DL (1.5-2.4); POTASSIUM 3.9 MMOL/L (3.5-5.1); SODIUM 144 MMOL/L (135-145); TOTAL CARBON DIOXIDE 15.8 MMOL/L (24-32); eGFR 35 ML/MIN
[2019-09-02] MEDS ORDERED: naproxen 500mg tablet PO ONE (22:50)
[2019-09-02] MEDS ORDERED: mag hydrox/Alum hydrox/simeth 30ml oral suspension PO PRN (23:30)
[2019-09-02] MEDS ORDERED: magnesium hydroxide 30ml (MOM) UD suspension PO PRN (23:30)
[2019-09-02] MEDS ORDERED: magnesium Cl slow-release 64mg tablet PO PRN (23:30)
[2019-09-02] MEDS ORDERED: potassium CL 10mEq/100ml bag 100 ML IV PRN ×2 (23:30)
[2019-09-02] MEDS ORDERED: acetaminophen 325mg tablet PO PRN (23:30)
[2019-09-02] MEDS ORDERED: magnesium 2GM in 50ml NS 50 ML IV PRN (23:30)
[2019-09-02] MEDS ORDERED: magnesium 4gm in 100ml NS 100 ML IV PRN (23:30)
[2019-09-02] MEDS ORDERED: potassium Cl 20 mEq SR tablet PO PRN ×2 (23:30)
[2019-09-02 23:36] LABS: CLARITY,URINE CLEAR (Clear); COLOR,URINE YELLOW (Yellow); GLUCOSE, URINE NEGATIVE (Neg); KETONES,URINE NEGATIVE (Neg); LEUKOCYTE ESTERASE ,URINE NEGATIVE (Neg); NITRITES, URINE NEGATIVE (Neg); OCCULT BLOOD,URINE NEGATIVE (Neg); PROTEIN,URINE NEGATIVE (Neg); UROBILINOGEN,URINE 0.2 E.U/dL (0.2-1.0)
[2019-09-02 23:39] LABS: UA COLLECTION TYPE CLN CATCH MIDSTREAM
[2019-09-03] VITALS (8 sets, daily range): BP systolic 127–168; BP diastolic 70–96
[2019-09-03] MEDS ORDERED: ondansetron/PF 4mg/2ml inj IV ONE (00:05)
[2019-09-03] MEDS: normal saline 1000ml 1,000 ML IV SCH ×3 (00:24→14:17)
[2019-09-03] MEDS: morphine 4 MG/ML inj SYRINge IV PRN ×8 (00:27→22:52)
[2019-09-03] MEDS ORDERED: diphenhydrAMINE 50 mg/ml inj IV PRN (01:30)
[2019-09-03] MEDS ORDERED: temazepam 15mg capsule PO ONE (01:30)
[2019-09-03 01:34] LABS: OCCULT BLOOD STOOL POSITIVE (Neg)
[2019-09-03] MEDS: pantoprazole 40MG/NS 100ML BAG 100 ML IV SCH ×5 (01:50→21:00)
--- NOTE | 2019-09-03 02:30 | NUR ---
Patient in room MED 314. I have received report from Edil BAUTISTA and had the opportunity to ask questions and assume patient care.
[2019-09-03 05:12] LABS: BASOPHILS % (AUTO) 0.3 % (0-1); EOSINOPHILS % (AUTO) 0.1 % (0-6); LYMPHOCYTES # (AUTO) 1.2 X10'3 (1.1-4.8); LYMPHOCYTES % (AUTO) 18.5 % (21-51); MEAN CORPUSCULAR HEMOGLOBIN 31.1 PG (27.0-31.0); MEAN CORPUSCULAR VOLUME 94.4 FL (78-98); MEAN PLATELET VOLUME 7.5 FL (7.4-10.4); MONOCYTES # (AUTO) 0.4 X10'3 (0-0.9); MONOCYTES % (AUTO) 5.3 % (2-12); NEUTROPHILS % (AUTO) 75.8 % (42-75); PLATELET COUNT 180 X10'3 (140-440); RED BLOOD COUNT 1.74 X10'6 (4.20-5.60); RED CELL DISTRIBUTION WIDTH 18.5 % (11.5-14.5); WHITE BLOOD COUNT 6.6 X10'3 (4.5-11.0)
[2019-09-03 05:24] LABS: HEMOGLOBIN 5.4 g/dl (12.0-16.0)
[2019-09-03 05:25] LABS: HEMATOCRIT 16.4 % (35.0-45.0)
[2019-09-03 05:26] LABS: ALANINE AMINOTRANSFERASE 17 U/L (12-78); ALBUMIN 3.2 G/DL (3.4-5.0); ALBUMIN/GLOBULIN RATIO 1.6 (1.1-1.5); ALKALINE PHOSPHATASE 44 IU/L (46-116); ANION GAP 12 (8-16); ASPARTATE AMINO TRANSFERASE 16 U/L (10-37); BILIRUBIN,TOTAL 0.3 MG/DL (0.1-1.0); BLOOD UREA NITROGEN 18 MG/DL (7-18); BUN/CREATININE RATIO 18.8 (6.6-38.0); CALCIUM 7.2 MG/DL (8.5-10.1); CHLORIDE 116 MMOL/L (99-107); CREATININE 0.96 MG/DL (0.40-0.90); GLUCOSE 103 MG/DL (70-104); MAGNESIUM 1.9 MG/DL (1.5-2.4); PHOSPHORUS 2.7 MG/DL (2.3-4.5); POTASSIUM 3.7 MMOL/L (3.5-5.1); SODIUM 144 MMOL/L (135-145); TOTAL PROTEIN 5.2 G/DL (6.4-8.2); eGFR 60 ML/MIN
--- NOTE | 2019-09-03 06:25 | NUR ---
Problems reprioritized. Patient report given, questions answered & plan of care reviewed with FRANCISCO. Addendum: 09/03/19 at 0626 by Jacob Perez RN Amended: Links added.
--- NOTE | 2019-09-03 07:44 | NUR ---
PAGER ID: [phone] MESSAGE: Good morning. Irasema Dunn 350B. Blood ordered. Pt. states MD has not explained/consented transfusion and will not sign consent. Would also like Xanax before transfusion r/t anxiety that occurred during 01/13 transfusion. Lea [phone]
[2019-09-03] MEDS: topiramate 100mg tablet PO SCH ×2 (08:00→20:09)
[2019-09-03] MEDS: K and/or MAG REPLACEMENT MC SCH ×2 (08:00→20:00)
[2019-09-03] MEDS: ondansetron/PF 4mg/2ml inj IV PRN ×2 (08:35→17:47)
[2019-09-03] MEDS: ALPRAZolam 0.25mg tablet PO PRN ×2 (11:10→22:53)
--- NOTE | 2019-09-03 11:49 | NUR ---
TRANFUSION STARTED @ 60ML/HR. pT. TOLERATING WELL SO FAR.
--- NOTE | 2019-09-03 13:00 | NUR ---
PT. TALKING TO SISTER ON CELL PHONE. TOLERATING TRANSFUSION WELL. NO ANXIETY OR ASE NOTED AT THIS TIME.
--- NOTE | 2019-09-03 16:42 | NUR ---
Lab states they tried to draw pt's blood for 30 minutes and unable to obtain. Paged PICC RN. PICC RN replied- she will be up shortly to draw pt.'s hemogram.
[2019-09-03 18:11] LABS: HEMATOCRIT 23.3 % (35.0-45.0); HEMOGLOBIN 7.6 g/dl (12.0-16.0); MEAN CORPUSCULAR HEMOGLOBIN 29.9 PG (27.0-31.0); MEAN CORPUSCULAR HGB CONC 32.5 g/dL (33.0-36.5); MEAN PLATELET VOLUME 7.3 FL (7.4-10.4); PLATELET COUNT 182 X10'3 (140-440); RED BLOOD COUNT 2.53 X10'6 (4.20-5.60); RED CELL DISTRIBUTION WIDTH 18.8 % (11.5-14.5); WHITE BLOOD COUNT 5.5 X10'3 (4.5-11.0)
--- NOTE | 2019-09-03 18:16 | NUR ---
REPORT GIVEN TO MYRA BAUTISTA.
--- NOTE | 2019-09-03 22:27 | NUR ---
Problems reprioritized. Patient report given, questions answered & plan of care reviewed with Jude. Addendum: 09/03/19 at 2229 by Jacob Perez RN Amended: Links added.
[2019-09-03] MEDS ORDERED: diphenhydrAMINE 50 mg/ml inj IV ONE (23:45)
[2019-09-04] MEDS: ondansetron/PF 4mg/2ml inj IV PRN ×5 (00:09→21:11)
[2019-09-04] MEDS: normal saline 1000ml 1,000 ML IV SCH ×3 (00:33→21:33)
[2019-09-04 02:00] VITALS: BP 163/80
[2019-09-04] MEDS: morphine 4 MG/ML inj SYRINge IV PRN ×6 (02:06→23:13)
[2019-09-04] MEDS: pantoprazole 40MG/NS 100ML BAG 100 ML IV SCH ×3 (02:11→11:00)
[2019-09-04 04:36] LABS: BASOPHILS % (AUTO) 0.2 % (0-1); EOSINOPHILS # (AUTO) 0.1 X10'3 (0-0.9); EOSINOPHILS % (AUTO) 1.9 % (0-6); HEMOGLOBIN 7.6 g/dl (12.0-16.0); LYMPHOCYTES # (AUTO) 1.2 X10'3 (1.1-4.8); LYMPHOCYTES % (AUTO) 21.8 % (21-51); MEAN CORPUSCULAR HEMOGLOBIN 30.4 PG (27.0-31.0); MEAN CORPUSCULAR HGB CONC 33.1 g/dL (33.0-36.5); MEAN CORPUSCULAR VOLUME 91.8 FL (78-98); MEAN PLATELET VOLUME 7.2 FL (7.4-10.4); MONOCYTES # (AUTO) 0.2 X10'3 (0-0.9); MONOCYTES % (AUTO) 4.4 % (2-12); NEUTROPHILS # (AUTO) 3.8 X10'3 (1.8-7.7); NEUTROPHILS % (AUTO) 71.7 % (42-75); PLATELET COUNT 199 X10'3 (140-440); RED CELL DISTRIBUTION WIDTH 18.6 % (11.5-14.5); WHITE BLOOD COUNT 5.3 X10'3 (4.5-11.0)
[2019-09-04 04:37] LABS: ALANINE AMINOTRANSFERASE 20 U/L (12-78); ALBUMIN 3.6 G/DL (3.4-5.0); ALBUMIN/GLOBULIN RATIO 1.4 (1.1-1.5); ALKALINE PHOSPHATASE 55 IU/L (46-116); ANION GAP 12 (8-16); ASPARTATE AMINO TRANSFERASE 37 U/L (10-37); BILIRUBIN,TOTAL 0.6 MG/DL (0.1-1.0); BLOOD UREA NITROGEN 6 MG/DL (7-18); BUN/CREATININE RATIO 6.8 (6.6-38.0); CALCIUM 7.8 MG/DL (8.5-10.1); CHLORIDE 109 MMOL/L (99-107); CREATININE 0.88 MG/DL (0.40-0.90); GLUCOSE 78 MG/DL (70-104); MAGNESIUM 1.8 MG/DL (1.5-2.4); PHOSPHORUS 2.4 MG/DL (2.3-4.5); SODIUM 142 MMOL/L (135-145); TOTAL CARBON DIOXIDE 21.1 MMOL/L (24-32); TOTAL PROTEIN 6.1 G/DL (6.4-8.2); eGFR 66 ML/MIN
[2019-09-04 04:38] LABS: POTASSIUM 3.8 MMOL/L (3.5-5.1)
[2019-09-04 06:00] VITALS: BP 154/85
--- NOTE | 2019-09-04 06:00 | NUR ---
Patient in room MED 314. I have received report from MICHELE Roque and had the opportunity to ask questions and assume patient care.
--- NOTE | 2019-09-04 06:06 | NUR ---
Problems reprioritized. Patient report given, questions answered & plan of care reviewed with Pennie BAUTISTA. Patient is resting comfortably in bed at time of shift report.
[2019-09-04] MEDS: topiramate 100mg tablet PO SCH ×2 (07:28→21:30)
[2019-09-04] MEDS: K and/or MAG REPLACEMENT MC SCH ×2 (08:00→18:49)
[2019-09-04 10:00] VITALS: BP 146/78
[2019-09-04 14:37] VITALS: BP 142/83
[2019-09-04 18:00] VITALS: BP 156/78
--- NOTE | 2019-09-04 18:35 | NUR ---
Problems reprioritized. Patient report given, questions answered & plan of care reviewed with MICHELE VILLASENOR.
--- NOTE | 2019-09-04 18:35 | NUR ---
Student documentation: I have reviewed and agree with interventions, assessments performed and documented by ROCIO NAVARRETE NURSE. Student Medication Administration: For this medication-pass time frame, medication were reviewed, dispensed, administered and documented per hospital policy by ROCIO NAVARRETE .
--- NOTE | 2019-09-04 18:46 | NUR ---
Patient in room MED 314. I have received report from Pennie BAUTISTA and had the opportunity to ask questions and assume patient care.
[2019-09-04] MEDS: metoprolol tartrate 25mg tablet PO SCH (19:38)
[2019-09-04] MEDS: pantoprazole 40 MG vial IV SCH (20:00)
[2019-09-04 22:00] VITALS: BP 106/65
[2019-09-04] MEDS ORDERED: diphenhydrAMINE 50 mg/ml inj IV ONE (22:50)
[2019-09-04] MEDS: ALPRAZolam 0.25mg tablet PO PRN (23:14)
[2019-09-05 02:00] VITALS: BP 113/65
[2019-09-05 03:56] LABS: BASOPHILS % (AUTO) 0.4 % (0-1); EOSINOPHILS # (AUTO) 0.1 X10'3 (0-0.9); EOSINOPHILS % (AUTO) 2.1 % (0-6); HEMATOCRIT 23.3 % (35.0-45.0); HEMOGLOBIN 7.5 g/dl (12.0-16.0); LYMPHOCYTES # (AUTO) 1.6 X10'3 (1.1-4.8); LYMPHOCYTES % (AUTO) 25.2 % (21-51); MEAN CORPUSCULAR HEMOGLOBIN 29.9 PG (27.0-31.0); MEAN CORPUSCULAR HGB CONC 32.3 g/dL (33.0-36.5); MEAN CORPUSCULAR VOLUME 92.6 FL (78-98); MONOCYTES # (AUTO) 0.4 X10'3 (0-0.9); MONOCYTES % (AUTO) 6.8 % (2-12); NEUTROPHILS # (AUTO) 4.2 X10'3 (1.8-7.7); NEUTROPHILS % (AUTO) 65.5 % (42-75); PLATELET COUNT 238 X10'3 (140-440); RED BLOOD COUNT 2.52 X10'6 (4.20-5.60); RED CELL DISTRIBUTION WIDTH 18.4 % (11.5-14.5); WHITE BLOOD COUNT 6.4 X10'3 (4.5-11.0)
[2019-09-05 04:07] LABS: ALANINE AMINOTRANSFERASE 19 U/L (12-78); ALBUMIN 3.6 G/DL (3.4-5.0); ALBUMIN/GLOBULIN RATIO 1.2 (1.1-1.5); ALKALINE PHOSPHATASE 58 IU/L (46-116); ANION GAP 14 (8-16); ASPARTATE AMINO TRANSFERASE 22 U/L (10-37); BILIRUBIN,TOTAL 0.6 MG/DL (0.1-1.0); BLOOD UREA NITROGEN 10 MG/DL (7-18); CALCIUM 8.1 MG/DL (8.5-10.1); CHLORIDE 107 MMOL/L (99-107); CREATININE 1.11 MG/DL (0.40-0.90); GLUCOSE 89 MG/DL (70-104); MAGNESIUM 1.9 MG/DL (1.5-2.4); PHOSPHORUS 2.9 MG/DL (2.3-4.5); POTASSIUM 3.8 MMOL/L (3.5-5.1); SODIUM 140 MMOL/L (135-145); TOTAL PROTEIN 6.7 G/DL (6.4-8.2); eGFR 50 ML/MIN
[2019-09-05] MEDS: ondansetron/PF 4mg/2ml inj IV PRN ×2 (04:41→13:25)
[2019-09-05] MEDS: morphine 4 MG/ML inj SYRINge IV PRN ×6 (04:41→22:45)
[2019-09-05 06:00] VITALS: BP 98/60
--- NOTE | 2019-09-05 06:24 | NUR ---
Problems reprioritized. Patient report given, questions answered & plan of care reviewed with Fabiola BAUTISTA.
--- NOTE | 2019-09-05 06:27 | NUR ---
Patient in room MED 314. I have received report from MICHELE Roque and had the opportunity to ask questions and assume patient care.
[2019-09-05] MEDS: pantoprazole 40 MG vial IV SCH (07:49)
[2019-09-05] MEDS: topiramate 100mg tablet PO SCH ×2 (07:54→19:38)
[2019-09-05] MEDS: metoprolol tartrate 25mg tablet PO SCH ×2 (07:58→19:38)
[2019-09-05] MEDS: K and/or MAG REPLACEMENT MC SCH ×2 (08:00→18:14)
[2019-09-05] MEDS: normal saline 1000ml 1,000 ML IV SCH ×2 (08:00→19:44)
[2019-09-05] MEDS ORDERED: methylPREDNISolone sod succ 125mg/2ml vial IV ONE (09:20)
[2019-09-05 11:00] VITALS: BP 115/66
[2019-09-05] MEDS: methylPREDNISolone sod succ 125mg/2ml vial IV SCH ×2 (14:19→19:36)
[2019-09-05 15:00] VITALS: BP 132/77
[2019-09-05] MEDS: metroNIDAZOLE-Flagyl 500mg/NS 100 ML IV SCH (16:46)
--- NOTE | 2019-09-05 18:10 | NUR ---
Problems reprioritized. Patient report given, questions answered & plan of care reviewed with MICHELE Roque.
[2019-09-05] MEDS: pantoprazole 40mg Tablet.DR PO SCH (19:38)
[2019-09-05] MEDS: ciprofloxacin lact 400MG/200ML 200 ML IV SCH (19:40)
[2019-09-05] MEDS: ALPRAZolam 0.25mg tablet PO PRN (22:45)
[2019-09-05] MEDS: diphenhydrAMINE 50 mg/ml inj IV PRN (22:45)
--- NOTE | 2019-09-05 23:47 | NUR ---
Patient in room MED 314. I have received report from Fabiola BAUTISTA and had the opportunity to ask questions and assume patient care.
[2019-09-06] MEDS: metroNIDAZOLE-Flagyl 500mg/NS 100 ML IV SCH ×4 (00:11→23:44)
[2019-09-06] MEDS: ondansetron/PF 4mg/2ml inj IV PRN ×3 (02:01→19:58)
[2019-09-06] MEDS: methylPREDNISolone sod succ 125mg/2ml vial IV SCH ×4 (02:01→20:01)
[2019-09-06] MEDS: morphine 4 MG/ML inj SYRINge IV PRN ×4 (02:01→23:33)
[2019-09-06 05:13] LABS: BASOPHILS % (AUTO) 0.1 % (0-1); EOSINOPHILS % (AUTO) 0 % (0-6); LYMPHOCYTES # (AUTO) 0.3 X10'3 (1.1-4.8); LYMPHOCYTES % (AUTO) 6.2 % (21-51); MEAN CORPUSCULAR HEMOGLOBIN 30.4 PG (27.0-31.0); MEAN CORPUSCULAR HGB CONC 32.9 g/dL (33.0-36.5); MEAN CORPUSCULAR VOLUME 92.5 FL (78-98); MEAN PLATELET VOLUME 7.6 FL (7.4-10.4); MONOCYTES # (AUTO) 0.1 X10'3 (0-0.9); MONOCYTES % (AUTO) 1.9 % (2-12); NEUTROPHILS # (AUTO) 4.6 X10'3 (1.8-7.7); NEUTROPHILS % (AUTO) 91.8 % (42-75); PLATELET COUNT 204 X10'3 (140-440); RED BLOOD COUNT 2.32 X10'6 (4.20-5.60); RED CELL DISTRIBUTION WIDTH 18.7 % (11.5-14.5)
[2019-09-06 05:20] LABS: ALANINE AMINOTRANSFERASE 21 U/L (12-78); ALBUMIN 3.3 G/DL (3.4-5.0); ALBUMIN/GLOBULIN RATIO 1.1 (1.1-1.5); ALKALINE PHOSPHATASE 51 IU/L (46-116); ANION GAP 12 (8-16); ASPARTATE AMINO TRANSFERASE 24 U/L (10-37); BILIRUBIN,TOTAL 0.3 MG/DL (0.1-1.0); BLOOD UREA NITROGEN 8 MG/DL (7-18); BUN/CREATININE RATIO 9.1 (6.6-38.0); CALCIUM 8.1 MG/DL (8.5-10.1); CHLORIDE 108 MMOL/L (99-107); CREATININE 0.88 MG/DL (0.40-0.90); GLUCOSE 181 MG/DL (70-104); MAGNESIUM 1.9 MG/DL (1.5-2.4); PHOSPHORUS 2.7 MG/DL (2.3-4.5); POTASSIUM 3.7 MMOL/L (3.5-5.1); SODIUM 142 MMOL/L (135-145); TOTAL CARBON DIOXIDE 21.8 MMOL/L (24-32); TOTAL PROTEIN 6.3 G/DL (6.4-8.2); eGFR 66 ML/MIN
[2019-09-06 06:00] VITALS: BP 109/64
[2019-09-06 06:16] LABS: HEMATOCRIT 21.4 % (35.0-45.0)
--- NOTE | 2019-09-06 06:34 | NUR ---
Problems reprioritized. Patient report given, questions answered & plan of care reviewed with Fabiola BAUTISTA.
[2019-09-06] MEDS: K and/or MAG REPLACEMENT MC SCH ×2 (08:00→20:00)
[2019-09-06] MEDS: lactobacillus rhamnosus 10,000 MMU CELLS/CAPSULE PO SCH ×2 (08:27→19:50)
[2019-09-06] MEDS: pantoprazole 40mg Tablet.DR PO SCH ×2 (08:27→19:48)
[2019-09-06] MEDS: topiramate 100mg tablet PO SCH ×2 (08:27→19:50)
[2019-09-06] MEDS: metoprolol tartrate 25mg tablet PO SCH ×2 (08:27→19:54)
[2019-09-06] MEDS: ciprofloxacin lact 400MG/200ML 200 ML IV SCH ×2 (08:28→20:08)
[2019-09-06] MEDS: normal saline 1000ml 1,000 ML IV SCH ×4 (08:28→22:21)
[2019-09-06 11:00] VITALS: BP 104/63
--- NOTE | 2019-09-06 11:19 | NUR ---
PAGER ID: [phone] MESSAGE: 314. pt. Irasema Dunn. JD I'm progressing pt. to a full liquid diet. please call unit if you don't want us to. thank you. Fabiola [phone]
[2019-09-06] MEDS: HYDROcodone/acetaminophen 5mg/325mg tablet PO PRN ×2 (13:35→19:49)
--- NOTE | 2019-09-06 17:30 | NUR ---
Student documentation: I have reviewed and agree with all interventions, assessments performed and documented by JOSE Pratt.
[2019-09-06 18:00] VITALS: BP 120/70
--- NOTE | 2019-09-06 18:27 | NUR ---
Problems reprioritized. Patient report given, questions answered & plan of care reviewed with MICHELE Sandoval.
--- NOTE | 2019-09-06 18:30 | NUR ---
Patient in room MED 314. I have received report from MICHELE Hicks and had the opportunity to ask questions and assume patient care.
[2019-09-06] MEDS: ALPRAZolam 0.25mg tablet PO PRN (19:52)
--- NOTE | 2019-09-06 22:30 | NUR ---
Patient requested that she wanted her IV out. Charge nurse aware and ok with it being pulled. I paged the hospitalist and let him know as well. She also wanted to leave AMA both the charge nurse and I explained that she could not leave AMA because she was on a 1798 hold. She has decided to stay. Addendum: 09/07/19 at 0016 by Jaime Peterson RN THIS NOTE WAS NOT ATTENDED FOR THIS PATIENT> OMIT
[2019-09-06] MEDS: zolpidem 5mg tablet PO PRN (23:32)
[2019-09-07 02:00] VITALS: BP 105/65
[2019-09-07] MEDS: methylPREDNISolone sod succ 125mg/2ml vial IV SCH ×4 (02:32→20:04)
[2019-09-07] MEDS: HYDROcodone/acetaminophen 5mg/325mg tablet PO PRN ×3 (04:37→20:03)
[2019-09-07] MEDS: ondansetron/PF 4mg/2ml inj IV PRN ×3 (04:37→20:03)
[2019-09-07 06:00] VITALS: BP 97/70
--- NOTE | 2019-09-07 06:09 | NUR ---
Problems reprioritized. Patient report given, questions answered & plan of care reviewed with MICHELE Hicks.
[2019-09-07 06:46] LABS: ALANINE AMINOTRANSFERASE 25 U/L (12-78); ALBUMIN 3.5 G/DL (3.4-5.0); ALBUMIN/GLOBULIN RATIO 1.6 (1.1-1.5); ALKALINE PHOSPHATASE 48 IU/L (46-116); ANION GAP 9 (8-16); ASPARTATE AMINO TRANSFERASE 20 U/L (10-37); BILIRUBIN,TOTAL 0.3 MG/DL (0.1-1.0); BLOOD UREA NITROGEN 10 MG/DL (7-18); BUN/CREATININE RATIO 10.5 (6.6-38.0); CALCIUM 8.4 MG/DL (8.5-10.1); CHLORIDE 113 MMOL/L (99-107); CREATININE 0.95 MG/DL (0.40-0.90); GLUCOSE 142 MG/DL (70-104); MAGNESIUM 2.1 MG/DL (1.5-2.4); PHOSPHORUS 2.6 MG/DL (2.3-4.5); POTASSIUM 3.6 MMOL/L (3.5-5.1); SODIUM 145 MMOL/L (135-145); TOTAL CARBON DIOXIDE 22.9 MMOL/L (24-32); TOTAL PROTEIN 5.7 G/DL (6.4-8.2); eGFR 60 ML/MIN
[2019-09-07 07:22] LABS: BASOPHILS % (AUTO) 0.2 % (0-1); EOSINOPHILS % (AUTO) 0 % (0-6); LYMPHOCYTES # (AUTO) 0.3 X10'3 (1.1-4.8); LYMPHOCYTES % (AUTO) 3.2 % (21-51); MEAN CORPUSCULAR HEMOGLOBIN 30.6 PG (27.0-31.0); MEAN CORPUSCULAR HGB CONC 32.9 g/dL (33.0-36.5); MEAN CORPUSCULAR VOLUME 93.1 FL (78-98); MEAN PLATELET VOLUME 7.4 FL (7.4-10.4); MONOCYTES # (AUTO) 0.2 X10'3 (0-0.9); MONOCYTES % (AUTO) 2.8 % (2-12); NEUTROPHILS # (AUTO) 7.6 X10'3 (1.8-7.7); NEUTROPHILS % (AUTO) 93.8 % (42-75); PLATELET COUNT 213 X10'3 (140-440); RED BLOOD COUNT 2.29 X10'6 (4.20-5.60); RED CELL DISTRIBUTION WIDTH 19.3 % (11.5-14.5); WHITE BLOOD COUNT 8.1 X10'3 (4.5-11.0)
[2019-09-07 07:30] LABS: HEMATOCRIT 21.3 % (35.0-45.0)
--- NOTE | 2019-09-07 07:43 | NUR ---
PAGER ID: [phone] MESSAGE: michelle 314. pt. Irasema Dunn. pt. H&H came back at 7.0 and 21.3. Thank you. Fabiola [phone]
[2019-09-07] MEDS: K and/or MAG REPLACEMENT MC SCH ×2 (08:00→20:00)
[2019-09-07] MEDS: morphine 4 MG/ML inj SYRINge IV PRN ×3 (08:19→23:35)
[2019-09-07] MEDS: lactobacillus rhamnosus 10,000 MMU CELLS/CAPSULE PO SCH ×2 (08:23→20:03)
[2019-09-07] MEDS: metoprolol tartrate 25mg tablet PO SCH ×2 (08:24→20:03)
[2019-09-07] MEDS: pantoprazole 40mg Tablet.DR PO SCH ×2 (08:24→20:04)
[2019-09-07] MEDS: topiramate 100mg tablet PO SCH ×2 (08:24→20:04)
[2019-09-07] MEDS: ciprofloxacin lact 400MG/200ML 200 ML IV SCH ×2 (08:25→21:01)
[2019-09-07] MEDS: metroNIDAZOLE-Flagyl 500mg/NS 100 ML IV SCH (08:25)
[2019-09-07] MEDS: normal saline 1000ml 1,000 ML IV SCH (10:00)
[2019-09-07 11:00] VITALS: BP 125/67
--- NOTE | 2019-09-07 13:11 | NUR ---
PAGER ID: [phone] MESSAGE: rm. 314. pt. Irasema Dunn. YESII I changed pt. diet to mechanical soft. Fabiola [phone]
[2019-09-07] MEDS: ALPRAZolam 0.25mg tablet PO PRN (13:43)
[2019-09-07 14:10] VITALS: BP 132/80
[2019-09-07] MEDS ORDERED: benzocaine/benzethon 30gm ointment RC PRN (14:10)
--- NOTE | 2019-09-07 14:10 | NUR ---
Patient in room MED 314. I have received report from INDERJIT BAUTISTA and had the opportunity to ask questions and assume patient care.
--- NOTE | 2019-09-07 15:07 | NUR ---
Report called to receiving nurse MICHELE Zuniga. Transferred to [facility] with [employer] clothes, phone, correctional corporal. Special Issues communicated to receiving nurse.
[2019-09-07] MEDS: metroNIDAZOLE 500mg tablet PO SCH ×2 (15:51→23:35)
[2019-09-07 18:00] VITALS: BP 121/71
--- NOTE | 2019-09-07 18:25 | NUR ---
Problems reprioritized. Patient report given, questions answered & plan of care reviewed with VASQUEZ BAUTISTA.
[2019-09-07] MEDS: diatr meglu/diatrizoate 30ml oral sol.-(3 dose) bottle PO SCH (21:01)
[2019-09-07] MEDS: zolpidem 5mg tablet PO PRN (23:35)
[2019-09-08] VITALS (12 sets, daily range): BP systolic 126–155; BP diastolic 61–88
[2019-09-08] MEDS: methylPREDNISolone sod succ 125mg/2ml vial IV SCH ×4 (02:54→19:26)
[2019-09-08] MEDS: HYDROcodone/acetaminophen 5mg/325mg tablet PO PRN ×3 (04:50→18:43)
[2019-09-08] MEDS: ondansetron/PF 4mg/2ml inj IV PRN ×2 (04:50→18:42)
[2019-09-08 05:35] LABS: MAGNESIUM 2.3 MG/DL (1.5-2.4)
--- NOTE | 2019-09-08 06:00 | NUR ---
Patient in room [facility] 350. I have received report from MICHELE Barker and had the opportunity to ask questions and assume patient care.
[2019-09-08] MEDS: ciprofloxacin lact 400MG/200ML 200 ML IV SCH ×2 (07:17→19:27)
[2019-09-08] MEDS: diatr meglu/diatrizoate 30ml oral sol.-(3 dose) bottle PO SCH ×2 (07:19→09:54)
[2019-09-08] MEDS: topiramate 100mg tablet PO SCH ×2 (07:21→19:27)
[2019-09-08] MEDS: lactobacillus rhamnosus 10,000 MMU CELLS/CAPSULE PO SCH ×2 (07:21→19:26)
[2019-09-08] MEDS: metroNIDAZOLE 500mg tablet PO SCH ×2 (07:21→15:44)
[2019-09-08] MEDS: metoprolol tartrate 25mg tablet PO SCH ×2 (07:21→19:27)
[2019-09-08] MEDS: pantoprazole 40mg Tablet.DR PO SCH ×2 (07:21→19:27)
[2019-09-08] MEDS: K and/or MAG REPLACEMENT MC SCH ×2 (08:00→19:35)
[2019-09-08] MEDS: morphine 4 MG/ML inj SYRINge IV PRN ×2 (08:45→15:44)
[2019-09-08 09:38] LABS: BASOPHILS % (AUTO) 0.3 % (0-1); EOSINOPHILS % (AUTO) 0 % (0-6); LYMPHOCYTES # (AUTO) 0.4 X10'3 (1.1-4.8); LYMPHOCYTES % (AUTO) 5.3 % (21-51); MEAN CORPUSCULAR HEMOGLOBIN 30.1 PG (27.0-31.0); MEAN CORPUSCULAR HGB CONC 32.5 g/dL (33.0-36.5); MEAN CORPUSCULAR VOLUME 92.7 FL (78-98); MEAN PLATELET VOLUME 7.8 FL (7.4-10.4); MONOCYTES # (AUTO) 0.3 X10'3 (0-0.9); MONOCYTES % (AUTO) 3.5 % (2-12); NEUTROPHILS # (AUTO) 6.6 X10'3 (1.8-7.7); NEUTROPHILS % (AUTO) 90.9 % (42-75); PLATELET COUNT 207 X10'3 (140-440); RED BLOOD COUNT 2.09 X10'6 (4.20-5.60); RED CELL DISTRIBUTION WIDTH 18.9 % (11.5-14.5); WHITE BLOOD COUNT 7.2 X10'3 (4.5-11.0)
[2019-09-08 09:41] LABS: ALANINE AMINOTRANSFERASE 22 U/L (12-78); ALBUMIN 2.9 G/DL (3.4-5.0); ALBUMIN/GLOBULIN RATIO 1.4 (1.1-1.5); ALKALINE PHOSPHATASE 41 IU/L (46-116); ANION GAP 10 (8-16); ASPARTATE AMINO TRANSFERASE 22 U/L (10-37); BILIRUBIN,TOTAL 0.2 MG/DL (0.1-1.0); BLOOD UREA NITROGEN 13 MG/DL (7-18); BUN/CREATININE RATIO 16.9 (6.6-38.0); CALCIUM 7.8 MG/DL (8.5-10.1); CHLORIDE 112 MMOL/L (99-107); CREATININE 0.77 MG/DL (0.40-0.90); GLUCOSE 137 MG/DL (70-104); POTASSIUM 3.5 MMOL/L (3.5-5.1); SODIUM 144 MMOL/L (135-145); eGFR 77 ML/MIN
[2019-09-08 09:47] LABS: HEMOGLOBIN 6.3 g/dl (12.0-16.0)
[2019-09-08 09:48] LABS: HEMATOCRIT 19.3 % (35.0-45.0)
[2019-09-08] MEDS ORDERED: iohexol 300mg/ml 100ml inj. ONE (09:52)
[2019-09-08] MEDS: normal saline 1000ml 1,000 ML IV SCH ×2 (10:59→19:29)
[2019-09-08] MEDS: ALPRAZolam 0.25mg tablet PO PRN (12:29)
[2019-09-08 12:43] LABS: ANISOCYTOSIS 2+; PLATELET ESTIMATE NORMAL; POLYCHROMASIA FEW
[2019-09-08 12:44] LABS: ACANTHOCYTES FEW; TEAR DROP CELLS FEW
--- NOTE | 2019-09-08 12:50 | NUR ---
Dr. Steve stated pt to remain NPO d/t GI Consult planned for possible EGD this afternoon. MICHELE Jacobsen, notified. Pt is aware and agrees to plan.
--- NOTE | 2019-09-08 16:05 | NUR ---
initial: Patient presented to ED with anemia, GI bleed. Pt with poor appetite, met at bedside. Recent advance to mechanical soft diet from full liquids. Pt requesting cottage cheese, discussed other food options and would also like to try strawberry shake with dinner, chocolate shake with breakfast and yogurt with dinner, d/w RN. Discuss preferences with dietary. Now pt NPO for EGD. Per MD progress note pt anemic, received 1 unit PRBC. Has h/o NSAID gastritis, admitted with lower GIB secondary to UC. Rec: 1. advance diet as medically indicated to low residue 2. honor food preferences 3. monitor needs for ONS, pt may be agreeable if it is low in sugar (ensure high protein (19 g CHO) 4. wt per rx Addendum: 09/08/19 at [address] Amended: Links added.
--- NOTE | 2019-09-08 18:26 | NUR ---
Problems reprioritized. Patient report given, questions answered & plan of care reviewed with MICHELE Barker.
[2019-09-08 20:05] LABS: BASOPHILS % (AUTO) 0.2 % (0-1); EOSINOPHILS % (AUTO) 0 % (0-6); HEMATOCRIT 25.3 % (35.0-45.0); HEMOGLOBIN 8.3 g/dl (12.0-16.0); LYMPHOCYTES # (AUTO) 0.3 X10'3 (1.1-4.8); LYMPHOCYTES % (AUTO) 4.1 % (21-51); MEAN CORPUSCULAR HEMOGLOBIN 30.2 PG (27.0-31.0); MEAN CORPUSCULAR HGB CONC 32.9 g/dL (33.0-36.5); MEAN CORPUSCULAR VOLUME 91.8 FL (78-98); MEAN PLATELET VOLUME 7.5 FL (7.4-10.4); MONOCYTES # (AUTO) 0.3 X10'3 (0-0.9); MONOCYTES % (AUTO) 4.3 % (2-12); NEUTROPHILS # (AUTO) 6.6 X10'3 (1.8-7.7); NEUTROPHILS % (AUTO) 91.4 % (42-75); PLATELET COUNT 201 X10'3 (140-440); RED BLOOD COUNT 2.76 X10'6 (4.20-5.60); RED CELL DISTRIBUTION WIDTH 17.4 % (11.5-14.5); WHITE BLOOD COUNT 7.2 X10'3 (4.5-11.0)
[2019-09-09] VITALS (9 sets, daily range): BP systolic 118–159; BP diastolic 65–90
[2019-09-09] MEDS: morphine 4 MG/ML inj SYRINge IV PRN ×5 (00:21→21:20)
[2019-09-09] MEDS: zolpidem 5mg tablet PO PRN ×2 (00:21→23:57)
[2019-09-09] MEDS: diphenhydrAMINE 50 mg/ml inj IV PRN (00:21)
[2019-09-09] MEDS: metroNIDAZOLE 500mg tablet PO SCH ×4 (00:21→23:57)
[2019-09-09] MEDS: methylPREDNISolone sod succ 125mg/2ml vial IV SCH ×4 (02:00→19:38)
[2019-09-09 04:56] LABS: BASOPHILS % (AUTO) 0.3 % (0-1); EOSINOPHILS % (AUTO) 0.1 % (0-6); HEMATOCRIT 24.9 % (35.0-45.0); HEMOGLOBIN 8.1 g/dl (12.0-16.0); LYMPHOCYTES # (AUTO) 0.4 X10'3 (1.1-4.8); LYMPHOCYTES % (AUTO) 7.4 % (21-51); MEAN CORPUSCULAR HEMOGLOBIN 29.7 PG (27.0-31.0); MEAN CORPUSCULAR HGB CONC 32.5 g/dL (33.0-36.5); MEAN CORPUSCULAR VOLUME 91.3 FL (78-98); MEAN PLATELET VOLUME 7.5 FL (7.4-10.4); MONOCYTES # (AUTO) 0.4 X10'3 (0-0.9); MONOCYTES % (AUTO) 6.4 % (2-12); NEUTROPHILS % (AUTO) 85.8 % (42-75); PLATELET COUNT 207 X10'3 (140-440); RED BLOOD COUNT 2.73 X10'6 (4.20-5.60); RED CELL DISTRIBUTION WIDTH 18.2 % (11.5-14.5); WHITE BLOOD COUNT 5.8 X10'3 (4.5-11.0)
[2019-09-09 05:03] LABS: ALANINE AMINOTRANSFERASE 27 U/L (12-78); ALBUMIN 3.1 G/DL (3.4-5.0); ALBUMIN/GLOBULIN RATIO 1.5 (1.1-1.5); ALKALINE PHOSPHATASE 41 IU/L (46-116); ANION GAP 9 (8-16); ASPARTATE AMINO TRANSFERASE 16 U/L (10-37); BILIRUBIN,TOTAL 0.4 MG/DL (0.1-1.0); BLOOD UREA NITROGEN 11 MG/DL (7-18); BUN/CREATININE RATIO 13.4 (6.6-38.0); CALCIUM 8.2 MG/DL (8.5-10.1); CHLORIDE 113 MMOL/L (99-107); CREATININE 0.82 MG/DL (0.40-0.90); GLUCOSE 130 MG/DL (70-104); MAGNESIUM 2.2 MG/DL (1.5-2.4); POTASSIUM 3.2 MMOL/L (3.5-5.1); SODIUM 146 MMOL/L (135-145); TOTAL PROTEIN 5.2 G/DL (6.4-8.2); eGFR 72 ML/MIN
[2019-09-09] MEDS: normal saline 1000ml 1,000 ML IV SCH ×2 (05:29→15:17)
--- NOTE | 2019-09-09 06:00 | NUR ---
Patient in room [facility] 350. I have received report from MICHELE Barker and had the opportunity to ask questions and assume patient care.
[2019-09-09] MEDS: ciprofloxacin lact 400MG/200ML 200 ML IV SCH ×2 (07:06→19:38)
[2019-09-09] MEDS: K and/or MAG REPLACEMENT MC SCH ×2 (07:15→19:49)
[2019-09-09] MEDS ORDERED: LIDOcaine Viscous 15ml cup ONE (08:30)
[2019-09-09] MEDS ORDERED: fentaNYL/PF 50MCG/1 ML 2ML syringe ONE (08:30)
[2019-09-09] MEDS ORDERED: MIDAZolam 5mg/5ml vial ONE (08:30)
[2019-09-09] MEDS: pantoprazole 40mg Tablet.DR PO SCH ×2 (11:21→19:35)
[2019-09-09] MEDS: lactobacillus rhamnosus 10,000 MMU CELLS/CAPSULE PO SCH ×2 (11:22→19:35)
[2019-09-09] MEDS: metoprolol tartrate 25mg tablet PO SCH ×2 (11:22→19:37)
[2019-09-09] MEDS: topiramate 100mg tablet PO SCH ×2 (11:22→19:37)
[2019-09-09] MEDS ORDERED: potassium Cl 20 mEq SR tablet PO PRN (12:20)
[2019-09-09] MEDS ORDERED: potassium CL 10mEq/100ml bag 100 ML IV PRN (12:20)
[2019-09-09] MEDS ORDERED: magnesium Cl slow-release 64mg tablet PO PRN (12:20)
[2019-09-09] MEDS ORDERED: magnesium 4gm in 100ml NS 100 ML IV PRN (12:20)
[2019-09-09] MEDS: potassium Cl 20 mEq SR tablet PO PRN ×2 (15:14→19:35)
[2019-09-09] MEDS: ondansetron/PF 4mg/2ml inj IV PRN ×2 (15:14→21:20)
[2019-09-09] MEDS: HYDROcodone/acetaminophen 5mg/325mg tablet PO PRN (17:50)
--- NOTE | 2019-09-09 18:08 | NUR ---
Problems reprioritized. Patient report given, questions answered & plan of care reviewed with MICHELE Barker.
[2019-09-09] MEDS ORDERED: PEG 3350/Na sulf,bicarb,Cl/KCl oral sol 4 liter bottle PO ONE (20:00)
[2019-09-10] VITALS (10 sets, daily range): BP systolic 129–167; BP diastolic 73–92
[2019-09-10] MEDS: methylPREDNISolone sod succ 125mg/2ml vial IV SCH ×4 (02:00→20:01)
[2019-09-10] MEDS: normal saline 1000ml 1,000 ML IV SCH ×4 (02:08→23:29)
[2019-09-10] MEDS: morphine 4 MG/ML inj SYRINge IV PRN ×4 (04:28→22:00)
[2019-09-10 05:20] LABS: BASOPHILS % (AUTO) 0 % (0-1); EOSINOPHILS % (AUTO) 0 % (0-6); HEMOGLOBIN 8.7 g/dl (12.0-16.0); LYMPHOCYTES # (AUTO) 0.7 X10'3 (1.1-4.8); MEAN CORPUSCULAR HGB CONC 32.2 g/dL (33.0-36.5); MEAN CORPUSCULAR VOLUME 90.1 FL (78-98); MEAN PLATELET VOLUME 7.7 FL (7.4-10.4); MONOCYTES # (AUTO) 0.4 X10'3 (0-0.9); MONOCYTES % (AUTO) 6.5 % (2-12); NEUTROPHILS # (AUTO) 4.5 X10'3 (1.8-7.7); NEUTROPHILS % (AUTO) 81.5 % (42-75); PLATELET COUNT 227 X10'3 (140-440); RED BLOOD COUNT 2.99 X10'6 (4.20-5.60); RED CELL DISTRIBUTION WIDTH 17.8 % (11.5-14.5); WHITE BLOOD COUNT 5.5 X10'3 (4.5-11.0)
[2019-09-10 05:42] LABS: ALANINE AMINOTRANSFERASE 26 U/L (12-78); ALBUMIN 3.4 G/DL (3.4-5.0); ALBUMIN/GLOBULIN RATIO 1.5 (1.1-1.5); ALKALINE PHOSPHATASE 44 IU/L (46-116); ANION GAP 12 (8-16); ASPARTATE AMINO TRANSFERASE 17 U/L (10-37); BILIRUBIN,TOTAL 0.5 MG/DL (0.1-1.0); BLOOD UREA NITROGEN 9 MG/DL (7-18); BUN/CREATININE RATIO 12.3 (6.6-38.0); CALCIUM 8.2 MG/DL (8.5-10.1); CHLORIDE 110 MMOL/L (99-107); CREATININE 0.73 MG/DL (0.40-0.90); GLUCOSE 113 MG/DL (70-104); POTASSIUM 3.1 MMOL/L (3.5-5.1); SODIUM 144 MMOL/L (135-145); TOTAL CARBON DIOXIDE 22.5 MMOL/L (24-32); TOTAL PROTEIN 5.6 G/DL (6.4-8.2); eGFR 82 ML/MIN
--- NOTE | 2019-09-10 06:30 | NUR ---
Patient in room [facility] 350. I have received report from Mj BAUTISTA and had the opportunity to ask questions and assume patient care.
[2019-09-10] MEDS ORDERED: MIDAZolam 5mg/5ml vial ONE (06:44)
[2019-09-10] MEDS ORDERED: fentaNYL/PF 50MCG/1 ML 2ML syringe ONE (06:44)
[2019-09-10] MEDS ORDERED: lidocaine 2% viscous 15 ML cup ***bronch room only MM ONE (07:00)
[2019-09-10] MEDS ORDERED: fentaNYL/PF 50MCG/1 ML 2ML syringe IV ONE (07:00)
[2019-09-10] MEDS ORDERED: simethicone 40mg/0.6ml oral drops 30ml PO ONE (07:00)
[2019-09-10] MEDS ORDERED: MIDAZolam 5mg/5ml vial IV ONE (07:00)
[2019-09-10] MEDS: K and/or MAG REPLACEMENT MC SCH ×2 (08:00→20:00)
[2019-09-10] MEDS: ciprofloxacin lact 400MG/200ML 200 ML IV SCH ×2 (09:23→19:59)
[2019-09-10] MEDS: lactobacillus rhamnosus 10,000 MMU CELLS/CAPSULE PO SCH ×2 (09:23→20:01)
[2019-09-10] MEDS: pantoprazole 40mg Tablet.DR PO SCH ×2 (09:24→19:59)
[2019-09-10] MEDS: metroNIDAZOLE 500mg tablet PO SCH ×3 (09:24→23:28)
[2019-09-10] MEDS: topiramate 100mg tablet PO SCH ×2 (09:24→19:59)
[2019-09-10] MEDS: metoprolol tartrate 25mg tablet PO SCH ×2 (09:34→20:00)
[2019-09-10] MEDS: ondansetron/PF 4mg/2ml inj IV PRN ×2 (10:54→17:14)
[2019-09-10] MEDS: potassium Cl 20 mEq SR tablet PO PRN ×2 (14:28→20:05)
--- NOTE | 2019-09-10 15:34 | NUR ---
Reassessment: on clear liquid. pt wanting to take diet advancement slowly, d/w RN and recommend ensure clear while on clear liquid diet for additional protein. No longer bleeding. pt is agreeable to ensure high protein and cottage cheese when diet is advanced. Not meeting needs 9 days. Rec: 1. advance diet as medically indicated to low residue 2. honor food preferences 3. monitor needs for ONS, pt may be agreeable if it is low in sugar (ensure high protein (19 g CHO). Send ensure clear while on clear liquid diet. 4. wt per rx Addendum: 09/10/19 at [address] Amended: Links added.
[2019-09-10] MEDS: NUT.TX.IMPAIRED DIGEST FXN (Ensure Clear) 237 ML PO SCH (18:00)
--- NOTE | 2019-09-10 18:30 | NUR ---
Problems reprioritized. Patient report given, questions answered & plan of care reviewed with Sunita BAUTISTA.
--- NOTE | 2019-09-10 19:06 | NUR ---
Patient in room [facility] 350. I have received report from MICHELE Mayorga and had the opportunity to ask questions and assume patient care. Addendum: 09/10/19 at 1908 by Sunita Clemente RN Amended: Links added.
[2019-09-10] MEDS: HYDROcodone/acetaminophen 5mg/325mg tablet PO PRN (20:01)
[2019-09-10] MEDS: zolpidem 5mg tablet PO PRN (23:28)
[2019-09-10] MEDS: hydrocortisone acetate 25mg rectal suppository RC SCH (23:29)
[2019-09-11] MEDS: methylPREDNISolone sod succ 125mg/2ml vial IV SCH ×3 (01:37→14:05)
[2019-09-11] MEDS: HYDROcodone/acetaminophen 5mg/325mg tablet PO PRN ×2 (02:51→12:19)
[2019-09-11] MEDS: ondansetron/PF 4mg/2ml inj IV PRN (05:04)
[2019-09-11] MEDS: morphine 4 MG/ML inj SYRINge IV PRN ×2 (05:04→08:03)
[2019-09-11 05:48] LABS: BASOPHILS % (AUTO) 0.1 % (0-1); EOSINOPHILS % (AUTO) 0 % (0-6); HEMATOCRIT 26.4 % (35.0-45.0); HEMOGLOBIN 8.7 g/dl (12.0-16.0); LYMPHOCYTES # (AUTO) 0.3 X10'3 (1.1-4.8); LYMPHOCYTES % (AUTO) 6.9 % (21-51); MEAN CORPUSCULAR HEMOGLOBIN 29.5 PG (27.0-31.0); MEAN CORPUSCULAR HGB CONC 32.9 g/dL (33.0-36.5); MEAN CORPUSCULAR VOLUME 89.7 FL (78-98); MEAN PLATELET VOLUME 7.7 FL (7.4-10.4); MONOCYTES # (AUTO) 0.1 X10'3 (0-0.9); MONOCYTES % (AUTO) 2.3 % (2-12); NEUTROPHILS # (AUTO) 4.4 X10'3 (1.8-7.7); NEUTROPHILS % (AUTO) 90.7 % (42-75); PLATELET COUNT 211 X10'3 (140-440); RED BLOOD COUNT 2.94 X10'6 (4.20-5.60); WHITE BLOOD COUNT 4.8 X10'3 (4.5-11.0)
[2019-09-11 05:56] LABS: ALANINE AMINOTRANSFERASE 25 U/L (12-78); ALBUMIN 3.2 G/DL (3.4-5.0); ALBUMIN/GLOBULIN RATIO 1.5 (1.1-1.5); ALKALINE PHOSPHATASE 41 IU/L (46-116); ANION GAP 11 (8-16); ASPARTATE AMINO TRANSFERASE 14 U/L (10-37); BILIRUBIN,TOTAL 0.5 MG/DL (0.1-1.0); BLOOD UREA NITROGEN 9 MG/DL (7-18); BUN/CREATININE RATIO 10.3 (6.6-38.0); CHLORIDE 110 MMOL/L (99-107); CREATININE 0.87 MG/DL (0.40-0.90); GLUCOSE 129 MG/DL (70-104); POTASSIUM 3.6 MMOL/L (3.5-5.1); SODIUM 143 MMOL/L (135-145); TOTAL CARBON DIOXIDE 22.2 MMOL/L (24-32); TOTAL PROTEIN 5.3 G/DL (6.4-8.2); eGFR 67 ML/MIN
--- NOTE | 2019-09-11 06:13 | NUR ---
Patient in room [facility] 350. I have received report from Sunita BAUTISTA and had the opportunity to ask questions and assume patient care.
--- NOTE | 2019-09-11 06:16 | NUR ---
Problems reprioritized. Patient report given, questions answered & plan of care reviewed with MICHELE Morgan. Addendum: 09/11/19 at 0617 by Sunita Clemente RN Amended: Links added.
[2019-09-11 07:00] VITALS: BP 148/85
[2019-09-11] MEDS: K and/or MAG REPLACEMENT MC SCH (08:00)
[2019-09-11] MEDS: pantoprazole 40mg Tablet.DR PO SCH (08:03)
[2019-09-11] MEDS: topiramate 100mg tablet PO SCH (08:03)
[2019-09-11] MEDS: metoprolol tartrate 25mg tablet PO SCH (08:04)
[2019-09-11] MEDS: hydrocortisone acetate 25mg rectal suppository RC SCH (08:04)
[2019-09-11] MEDS: lactobacillus rhamnosus 10,000 MMU CELLS/CAPSULE PO SCH (08:04)
[2019-09-11] MEDS: metroNIDAZOLE 500mg tablet PO SCH (08:04)
[2019-09-11] MEDS: NUT.TX.IMPAIRED DIGEST FXN (Ensure Clear) 237 ML PO SCH ×2 (08:05→13:31)
[2019-09-11] MEDS: normal saline 1000ml 1,000 ML IV SCH (09:31)
[2019-09-11 11:00] VITALS: BP 133/77
[2019-09-11] MEDS ORDERED: ANUHCR RC (13:14)
[2019-09-11] MEDS ORDERED: METR500T PO (13:14)
[2019-09-11] MEDS ORDERED: METO25TA6 PO (13:14)
[2019-09-11] MEDS ORDERED: CIPR-230 PO (13:14)
--- NOTE | 2019-09-11 13:41 | NUR ---
Follow up: patient was advanced by MD to full liquids. Recommend ensure high protein with meals per pt request, notified MD. Not meeting needs 10 days. Rec: 1. advance diet as medically indicated to low residue 2. honor food preferences 3. ensure high protein with meals 4. wt per rx Addendum: 09/11/19 at [address] Amended: Links added.
--- NOTE | 2019-09-11 14:19 | NUR ---
Discharge instructions given to patient, patient verbalized understanding of all instructions made. Peripheral IV catheter removed, tip intact. Instructed patient to ensure she has all her belongings with her before leaving
[2019-09-11] MEDS ORDERED: lactose-reduced food (Ensure High Protein) 237ml bottle PO SCH (18:00)
== END 2019-09-11 14:50 | disposition home or self-care (01) | DRG 385 ==
LOC: ER 21:32 → ED HOLD 23:29 → UNDOADMIN 09-03 00:04 → SUR 3N 09-03 01:09 → ED HOLD 09-03 01:09 → SUR 3N 09-03 07:00 → MED 3N 09-03 22:20 → SUR 3N 09-07 14:36
PROVIDERS: ADMIT Family Medicine; ATTEND Family Medicine
PROC: 30233N1 Transfusion of Nonautologous Red Blood Cells into Peripheral Vein, Percutaneous Approach (ICD-10-PCS; principal; 2019-09-03)
PROC: 0DJ08ZZ Inspection of Upper Intestinal Tract, Via Natural or Artificial Opening Endoscopic (ICD-10-PCS; 2019-09-09)
PROC: 0DBP8ZZ Excision of Rectum, Via Natural or Artificial Opening Endoscopic (ICD-10-PCS; 2019-09-10)
DX: K51.911 Ulcerative colitis, unspecified with rectal bleeding (principal); N17.0 Acute kidney failure with tubular necrosis; D62 Acute posthemorrhagic anemia; K64.4 Residual hemorrhoidal skin tags; E78.00 Pure hypercholesterolemia, unspecified; E78.5 Hyperlipidemia, unspecified; E87.6 Hypokalemia; I12.9 Hypertensive chronic kidney disease with stage 1 through stage 4 chronic kidney disease, or unspecified chronic kidney disease; K62.1 Rectal polyp; F41.9 Anxiety disorder, unspecified; G89.29 Other chronic pain; R00.0 Tachycardia, unspecified; K22.70 Barrett's esophagus without dysplasia; K64.8 Other hemorrhoids; N18.9 Chronic kidney disease, unspecified; Z82.49 Family history of ischemic heart disease and other diseases of the circulatory system; Z90.49 Acquired absence of other specified parts of digestive tract; Z90.710 Acquired absence of both cervix and uterus; Z88.8 Allergy status to other drugs, medicaments and biological substances; Z88.2 Allergy status to sulfonamides; Z79.899 Other long term (current) drug therapy
CPT/HCPCS: 36415; 36430; 43235; 45385; 74176; 74177; 76937; 80053; 80320; 81003; 82272; 82948; 83605; 83690; 83735; 84100; 85025; 85027; 86885; 86900; 86901; 86920; 87040; 87081; 93005; 96361; 96374; 99152; 99285; A4620; C1773; C9113; G0378; J0744; J1200; J2250; J2270; J2405; J2930; J3010; J3490; J7030; J7040; J7999; P9016; Q9963; Q9967

== ENCOUNTER 2020-02-13 06:22 | Emergency (ER) | payer MEDICARE, MEDICAID ==
[~2020-02-13] VITALS: Ht 165.1 cm; Wt 55.5 kg
[~2020-02-13 06:22] MED LIST changes: +ANUHCR RC; -BUTA1CAP42 PO; -DICY10CA88 PO; +METO25TA6 PO; +METR500T PO; -MISO100T47 PO; -POTA20TA10 PO; -TIZA4TAB11 PO
[2020-02-13 06:42] VITALS: BP 140/88
[2020-02-13] MEDS ORDERED: benzonatate 100mg capsule PO ONE (07:00)
[2020-02-13] MEDS ORDERED: ondansetron 4mg rapidly disintigrating tab PO ONE (07:00)
[2020-02-13 08:52] LABS: BASOPHILS % (AUTO) 0.4 % (0-1); EOSINOPHILS % (AUTO) 1.1 % (0-6); HEMOGLOBIN 11.4 g/dl (12.0-16.0); LYMPHOCYTES % (AUTO) 35.7 % (21-51); MEAN CORPUSCULAR HEMOGLOBIN 35.7 PG (27.0-31.0); MEAN CORPUSCULAR HGB CONC 34.5 g/dL (33.0-36.5); MEAN CORPUSCULAR VOLUME 103.5 FL (78-98); MEAN PLATELET VOLUME 7.5 FL (7.4-10.4); MONOCYTES # (AUTO) 0.2 X10'3 (0-0.9); MONOCYTES % (AUTO) 7.8 % (2-12); NEUTROPHILS # (AUTO) 1.5 X10'3 (1.8-7.7); PLATELET COUNT 153 X10'3 (140-440); RED BLOOD COUNT 3.18 X10'6 (4.20-5.60); RED CELL DISTRIBUTION WIDTH 14.9 % (11.5-14.5); WHITE BLOOD COUNT 2.8 X10'3 (4.5-11.0)
[2020-02-13 08:59] LABS: ALBUMIN 4.3 G/DL (3.4-5.0); ANION GAP 13 (8-16); BLOOD UREA NITROGEN 24 MG/DL (7-18); BUN/CREATININE RATIO 26.4 (6.6-38.0); CALCIUM 8.2 MG/DL (8.5-10.1); CHLORIDE 105 MMOL/L (99-107); CREATININE 0.91 MG/DL (0.40-0.90); GLUCOSE 93 MG/DL (70-104); POTASSIUM 3.5 MMOL/L (3.5-5.1); SODIUM 139 MMOL/L (135-145); eGFR 63 ML/MIN
[2020-02-13 09:36] LABS: TOTAL CELLS COUNTED 100
[2020-02-13 09:37] LABS: LARGE PLATELETS FEW; PLATELET ESTIMATE NORMAL
[2020-02-13] MEDS ORDERED: oxyCODONE IR 5mg (immed. release) tablet PO ONE (09:40)
== END 2020-02-13 09:52 | disposition home or self-care (01) ==
LOC: ER 06:23
DX: R05 Cough (principal); Z20.828 Contact with and (suspected) exposure to other viral communicable diseases; N17.9 Acute kidney failure, unspecified; N18.9 Chronic kidney disease, unspecified; E78.00 Pure hypercholesterolemia, unspecified; G89.29 Other chronic pain; Z90.710 Acquired absence of both cervix and uterus; Z90.49 Acquired absence of other specified parts of digestive tract; Z98.891 History of uterine scar from previous surgery; Z95.5 Presence of coronary angioplasty implant and graft; Z88.2 Allergy status to sulfonamides; Z88.6 Allergy status to analgesic agent; Z88.8 Allergy status to other drugs, medicaments and biological substances; Z79.899 Other long term (current) drug therapy
CPT/HCPCS: 71045; 80048; 85007; 85025; 93005; 99285

== ENCOUNTER 2020-07-31 01:19 | Emergency (ER) | payer MEDICARE, MEDICAID ==
[~2020-07-31] VITALS: Ht 170.2 cm; Wt 52.3 kg
[~2020-07-31 01:19] MED LIST changes: +ALPR1TAB2 PO; -ANUHCR RC; -FERR324T4 PO; +LOP25T PO; -METO25TA6 PO; -METR500T PO; -ONDA4TAB9 SL; +POTA20TA19 PO
[2020-07-31] MEDS ORDERED: normal saline 1000ML IV soln IVB ONE (01:30)
[2020-07-31] MEDS ORDERED: pantoprazole 40 MG vial IV ONE (01:30)
[2020-07-31] MEDS ORDERED: normal saline 1000ml 1,000 ML IV ONE (01:30)
[2020-07-31 02:07] LABS: PARTIAL THROMBOPLASTIN TIME 24 SECONDS (22-32)
[2020-07-31 02:08] LABS: BASOPHILS % (AUTO) 0.7 % (0-1); EOSINOPHILS # (AUTO) 0.1 X10'3 (0-0.9); EOSINOPHILS % (AUTO) 2.7 % (0-6); HEMATOCRIT 30.1 % (35.0-45.0); HEMOGLOBIN 10.3 g/dl (12.0-16.0); LYMPHOCYTES # (AUTO) 1.5 X10'3 (1.1-4.8); LYMPHOCYTES % (AUTO) 36.6 % (21-51); MEAN CORPUSCULAR HEMOGLOBIN 34.3 PG (27.0-31.0); MEAN CORPUSCULAR HGB CONC 34.1 g/dL (33.0-36.5); MEAN CORPUSCULAR VOLUME 100.7 FL (78-98); MEAN PLATELET VOLUME 6.9 FL (7.4-10.4); MONOCYTES # (AUTO) 0.2 X10'3 (0-0.9); MONOCYTES % (AUTO) 5.3 % (2-12); NEUTROPHILS # (AUTO) 2.2 X10'3 (1.8-7.7); NEUTROPHILS % (AUTO) 54.7 % (42-75); PLATELET COUNT 267 X10'3 (140-440); RED BLOOD COUNT 2.99 X10'6 (4.20-5.60); RED CELL DISTRIBUTION WIDTH 19.7 % (11.5-14.5)
[2020-07-31 02:09] LABS: ALANINE AMINOTRANSFERASE 44 U/L (12-78); ALBUMIN/GLOBULIN RATIO 1.5 (1.1-1.5); ALKALINE PHOSPHATASE 65 IU/L (46-116); ANION GAP 19 (8-16); ASPARTATE AMINO TRANSFERASE 23 U/L (10-37); BILIRUBIN,TOTAL 0.2 MG/DL (0.1-1.0); BLOOD UREA NITROGEN 16 MG/DL (7-18); BUN/CREATININE RATIO 16.8 (6.6-38.0); CALCIUM 7.9 MG/DL (8.5-10.1); CHLORIDE 112 MMOL/L (99-107); CREATININE 0.95 MG/DL (0.40-0.90); ETHANOL 0.232 GM/DL (0.0-0.010); GLUCOSE 118 MG/DL (70-104); LIPASE 386 U/L (73-393); MAGNESIUM 2.1 MG/DL (1.5-2.4); POTASSIUM 3.4 MMOL/L (3.5-5.1); SODIUM 147 MMOL/L (135-145); TOTAL CARBON DIOXIDE 16.5 MMOL/L (24-32); TOTAL PROTEIN 6.7 G/DL (6.4-8.2); eGFR 60 ML/MIN
[2020-07-31 03:26] LABS: PLATELET ESTIMATE NORMAL
[2020-07-31 03:27] LABS: ANISOCYTOSIS 2+
[2020-07-31] MEDS ORDERED: LIDOcaine Viscous 15ml cup MM ONE (03:40)
[2020-07-31] MEDS ORDERED: mag hydrox/Alum hydrox/simeth 30ml oral suspension PO ONE (03:40)
[2020-07-31 04:05] VITALS: BP 137/66
[2020-07-31 04:22] LABS: OCCULT BLOOD STOOL NEGATIVE (Neg)
== END 2020-07-31 04:06 | disposition home or self-care (01) ==
LOC: ER 01:20
DX: K29.20 Alcoholic gastritis without bleeding (principal); R07.89 Other chest pain; E78.00 Pure hypercholesterolemia, unspecified; N18.9 Chronic kidney disease, unspecified; G89.29 Other chronic pain; F41.9 Anxiety disorder, unspecified; Z90.89 Acquired absence of other organs; Z90.49 Acquired absence of other specified parts of digestive tract; Z90.710 Acquired absence of both cervix and uterus; Z98.890 Other specified postprocedural states; Z72.89 Other problems related to lifestyle; Z88.2 Allergy status to sulfonamides; Z88.6 Allergy status to analgesic agent; Z88.8 Allergy status to other drugs, medicaments and biological substances; Z79.899 Other long term (current) drug therapy
CPT/HCPCS: 36415; 71045; 80053; 80320; 82272; 83690; 83735; 85008; 85025; 85610; 85730; 86885; 86900; 86901; 93005; 96361; 96374; 99285; C9113; J7030

== ENCOUNTER 2021-01-05 08:56 | Emergency (ER) | payer MEDICARE, MEDICAID ==
[~2021-01-05] VITALS: Ht 165.1 cm; Wt 53.9 kg
[2021-01-05] MEDS ORDERED: normal saline 1000ML IV soln IV ONE (09:10)
[2021-01-05 10:06] LABS: BASOPHILS % (AUTO) 0.4 % (0-1); EOSINOPHILS # (AUTO) 0.1 X10'3 (0-0.9); EOSINOPHILS % (AUTO) 3.3 % (0-6); HEMATOCRIT 32.2 % (35.0-45.0); LYMPHOCYTES # (AUTO) 1.3 X10'3 (1.1-4.8); LYMPHOCYTES % (AUTO) 46.9 % (21-51); MEAN CORPUSCULAR HEMOGLOBIN 35.7 PG (27.0-31.0); MEAN CORPUSCULAR HGB CONC 34.1 g/dL (33.0-36.5); MEAN CORPUSCULAR VOLUME 104.7 FL (78-98); MEAN PLATELET VOLUME 7.4 FL (7.4-10.4); MONOCYTES # (AUTO) 0.2 X10'3 (0-0.9); MONOCYTES % (AUTO) 6.4 % (2-12); NEUTROPHILS # (AUTO) 1.2 X10'3 (1.8-7.7); PLATELET COUNT 185 X10'3 (140-440); RED BLOOD COUNT 3.08 X10'6 (4.20-5.60); RED CELL DISTRIBUTION WIDTH 12.3 % (11.5-14.5); WHITE BLOOD COUNT 2.9 X10'3 (4.5-11.0)
[2021-01-05 10:21] LABS: ALANINE AMINOTRANSFERASE 34 U/L (12-78); ALBUMIN 4.4 G/DL (3.4-5.0); ALBUMIN/GLOBULIN RATIO 1.6 (1.1-1.5); ALKALINE PHOSPHATASE 73 IU/L (46-116); ANION GAP 12 (8-16); ASPARTATE AMINO TRANSFERASE 18 U/L (10-37); BILIRUBIN,TOTAL 0.1 MG/DL (0.1-1.0); BLOOD UREA NITROGEN 18 MG/DL (7-18); BUN/CREATININE RATIO 19.6 (6.6-38.0); CALCIUM 8.4 MG/DL (8.5-10.1); CHLORIDE 112 MMOL/L (99-107); CREATININE 0.92 MG/DL (0.40-0.90); ETHANOL < 0.010 GM/DL (0.0-0.010); GLUCOSE 105 MG/DL (70-104); POTASSIUM 4.2 MMOL/L (3.5-5.1); SODIUM 147 MMOL/L (135-145); TOTAL CARBON DIOXIDE 22.8 MMOL/L (24-32); TOTAL PROTEIN 7.2 G/DL (6.4-8.2); eGFR 62 ML/MIN
[2021-01-05 11:31] LABS: TOTAL CELLS COUNTED 100
[2021-01-05 11:35] LABS: PLATELET ESTIMATE NORMAL
[2021-01-05 12:53] LABS: D-DIMER < 0.19 MG/L FEU (0-0.50)
[2021-01-05] MEDS ORDERED: ondansetron/PF 4mg/2ml inj IV ONE (13:05)
[2021-01-05 15:03] LABS: URINE AMPHETAMINE SCREEN NEGATIVE (Neg); URINE BARBITUATE SCREEN POSITIVE (Neg); URINE BENZODIAZEPINES SCREEN POSITIVE (Neg); URINE CANNABINOID SCREEN NEGATIVE (Neg); URINE COCAINE SCREEN NEGATIVE (Neg); URINE METHADONE SCREEN NEGATIVE (Neg); URINE OPIATE SCREEN NEGATIVE (Neg); URINE PHENCYCLIDINE SCREEN NEGATIVE (Neg)
[2021-01-05 15:04] LABS: CLARITY,URINE CLEAR (Clear); COLOR,URINE STRAW (Yellow); PROTEIN,URINE NEGATIVE (Neg); UA COLLECTION TYPE CLN CATCH MIDSTREAM
[2021-01-05 15:05] LABS: GLUCOSE, URINE NEGATIVE (Neg); KETONES,URINE NEGATIVE (Neg); LEUKOCYTE ESTERASE ,URINE NEGATIVE (Neg); NITRITES, URINE NEGATIVE (Neg); OCCULT BLOOD,URINE NEGATIVE (Neg); UROBILINOGEN,URINE 0.2 E.U/dL (0.2-1.0)
[2021-01-05 15:25] VITALS: BP 130/75
== END 2021-01-05 15:29 | disposition home or self-care (01) ==
LOC: ER 08:57
DX: U07.1 COVID-19 (principal); I12.9 Hypertensive chronic kidney disease with stage 1 through stage 4 chronic kidney disease, or unspecified chronic kidney disease; N18.9 Chronic kidney disease, unspecified; G43.909 Migraine, unspecified, not intractable, without status migrainosus; G89.29 Other chronic pain; Z87.19 Personal history of other diseases of the digestive system; Z87.81 Personal history of (healed) traumatic fracture; Z86.2 Personal history of diseases of the blood and blood-forming organs and certain disorders involving the immune mechanism; E78.00 Pure hypercholesterolemia, unspecified; Z72.89 Other problems related to lifestyle; Z90.49 Acquired absence of other specified parts of digestive tract; Z90.710 Acquired absence of both cervix and uterus; Z98.891 History of uterine scar from previous surgery; Z88.2 Allergy status to sulfonamides; Z88.8 Allergy status to other drugs, medicaments and biological substances; Z79.899 Other long term (current) drug therapy
CPT/HCPCS: 36415; 71045; 80053; 80305; 80320; 81003; 85007; 85025; 85379; 85610; 86885; 86900; 86901; 87635; 93005; 96361; 96374; 99285; C9803; J2405; J7030

== ENCOUNTER 2021-06-10 22:10 | Emergency (ER) | payer MEDICARE, MEDICAID ==
[~2021-06-10] VITALS: Ht 165.1 cm; Wt 52.6 kg
[~2021-06-10 22:10] MED LIST changes: +POTA-207 PO; -POTA20TA19 PO
[2021-06-11 00:16] LABS: ALANINE AMINOTRANSFERASE 38 U/L (12-78); ALBUMIN 4.6 G/DL (3.4-5.0); ALBUMIN/GLOBULIN RATIO 1.6 (1.1-1.5); ALKALINE PHOSPHATASE 105 IU/L (46-116); ANION GAP 13 (8-16); ASPARTATE AMINO TRANSFERASE 21 U/L (10-37); BILIRUBIN,TOTAL 0.2 MG/DL (0.1-1.0); BLOOD UREA NITROGEN 20 MG/DL (7-18); BUN/CREATININE RATIO 21.7 (6.6-38.0); CALCIUM 8.6 MG/DL (8.5-10.1); CHLORIDE 115 MMOL/L (99-107); CREATININE 0.92 MG/DL (0.40-0.90); GLUCOSE 94 MG/DL (70-104); LIPASE 674 U/L (73-393); POTASSIUM 3.9 MMOL/L (3.5-5.1); SODIUM 149 MMOL/L (135-145); TOTAL CARBON DIOXIDE 20.8 MMOL/L (24-32); TOTAL PROTEIN 7.5 G/DL (6.4-8.2); eGFR 62 ML/MIN
[2021-06-11 01:06] LABS: BASOPHILS % (AUTO) 0.5 % (0-1); EOSINOPHILS # (AUTO) 0.1 X10'3 (0-0.9); HEMOGLOBIN 12.4 g/dl (12.0-16.0); LYMPHOCYTES # (AUTO) 1.6 X10'3 (1.1-4.8); LYMPHOCYTES % (AUTO) 38.8 % (21-51); MEAN CORPUSCULAR HEMOGLOBIN 34.7 PG (27.0-31.0); MEAN CORPUSCULAR HGB CONC 33.5 g/dL (33.0-36.5); MEAN CORPUSCULAR VOLUME 103.6 FL (78-98); MEAN PLATELET VOLUME 7.6 FL (7.4-10.4); MONOCYTES # (AUTO) 0.3 X10'3 (0-0.9); MONOCYTES % (AUTO) 6.8 % (2-12); NEUTROPHILS # (AUTO) 2.1 X10'3 (1.8-7.7); NEUTROPHILS % (AUTO) 51.9 % (42-75); PLATELET COUNT 208 X10'3 (140-440); RED BLOOD COUNT 3.57 X10'6 (4.20-5.60); RED CELL DISTRIBUTION WIDTH 15.4 % (11.5-14.5); WHITE BLOOD COUNT 4.1 X10'3 (4.5-11.0)
[2021-06-11] MEDS ORDERED: ondansetron/PF 4mg/2ml inj IV ONE (01:45)
[2021-06-11] MEDS ORDERED: normal saline 1000ml 1,000 ML IV ONE ×2 (01:45→04:20)
[2021-06-11] MEDS ORDERED: iohexol 300mg/ml 100ml inj. ONE (02:05)
[2021-06-11 02:23] LABS: URINE HCG NEGATIVE (NEG)
[2021-06-11 02:35] LABS: COLOR,URINE YELLOW (Yellow); UA COLLECTION TYPE NON-SPECIFIED
[2021-06-11 02:36] LABS: CLARITY,URINE CLEAR (Clear); GLUCOSE, URINE NEGATIVE (Neg); KETONES,URINE NEGATIVE (Neg); OCCULT BLOOD,URINE NEGATIVE (Neg); PH,URINE 5.5 (4.8-8.0); PROTEIN,URINE NEGATIVE (Neg)
[2021-06-11 02:37] LABS: LEUKOCYTE ESTERASE ,URINE NEGATIVE (Neg); NITRITES, URINE NEGATIVE (Neg); UROBILINOGEN,URINE 0.2 E.U/dL (0.2-1.0)
[2021-06-11] MEDS ORDERED: morphine 4 MG/ML inj SYRINge IV ONE ×3 (05:05→06:20)
[2021-06-11 07:29] VITALS: BP 152/89
== END 2021-06-11 07:15 | disposition home or self-care (01) ==
LOC: ER 22:12
DX: R10.10 Upper abdominal pain, unspecified (principal); E86.0 Dehydration; R19.7 Diarrhea, unspecified; R06.02 Shortness of breath; R07.89 Other chest pain; E78.00 Pure hypercholesterolemia, unspecified; I12.9 Hypertensive chronic kidney disease with stage 1 through stage 4 chronic kidney disease, or unspecified chronic kidney disease; N18.9 Chronic kidney disease, unspecified; G89.29 Other chronic pain; F41.9 Anxiety disorder, unspecified; Z86.2 Personal history of diseases of the blood and blood-forming organs and certain disorders involving the immune mechanism; Z90.89 Acquired absence of other organs; Z90.49 Acquired absence of other specified parts of digestive tract; Z90.710 Acquired absence of both cervix and uterus; Z98.890 Other specified postprocedural states; Z72.89 Other problems related to lifestyle; Z88.2 Allergy status to sulfonamides; Z88.6 Allergy status to analgesic agent; Z88.8 Allergy status to other drugs, medicaments and biological substances; Z79.899 Other long term (current) drug therapy
CPT/HCPCS: 36415; 71045; 74177; 80053; 81003; 81025; 83690; 84484; 85025; 93005; 96361; 96374; 96375; 96376; 99285; J2270; J2405; J7030; Q9967

== ENCOUNTER 2022-01-20 17:17 | Emergency (ER) | payer MEDICARE, MEDICAID ==
[~2022-01-20] VITALS: Ht 162.6 cm; Wt 49.1 kg
[2022-01-20 18:29] LABS: BASOPHILS % (AUTO) 0.4 % (0-1); EOSINOPHILS % (AUTO) 0.7 % (0-6); HEMATOCRIT 36.9 % (35.0-45.0); HEMOGLOBIN 12.4 g/dl (12.0-16.0); LYMPHOCYTES # (AUTO) 1.1 X10'3 (1.1-4.8); LYMPHOCYTES % (AUTO) 18.9 % (21-51); MEAN CORPUSCULAR HEMOGLOBIN 34.6 PG (27.0-31.0); MEAN CORPUSCULAR HGB CONC 33.7 g/dL (33.0-36.5); MEAN CORPUSCULAR VOLUME 102.7 FL (78-98); MEAN PLATELET VOLUME 7.4 FL (7.4-10.4); MONOCYTES # (AUTO) 0.3 X10'3 (0-0.9); MONOCYTES % (AUTO) 5.8 % (2-12); NEUTROPHILS # (AUTO) 4.2 X10'3 (1.8-7.7); NEUTROPHILS % (AUTO) 74.2 % (42-75); PLATELET COUNT 176 X10'3 (140-440); RED BLOOD COUNT 3.59 X10'6 (4.20-5.60); RED CELL DISTRIBUTION WIDTH 13.4 % (11.5-14.5); WHITE BLOOD COUNT 5.7 X10'3 (4.5-11.0)
[2022-01-20 18:29] LABS: CLARITY,URINE CLOUDY (Clear); COLOR,URINE YELLOW (Yellow); GLUCOSE, URINE NEGATIVE (Neg); KETONES,URINE NEGATIVE (Neg); LEUKOCYTE ESTERASE ,URINE SMALL (Neg); NITRITES, URINE NEGATIVE (Neg); OCCULT BLOOD,URINE MODERATE (Neg); PH,URINE 5.5 (4.8-8.0); PROTEIN,URINE 30 mg/dl (Neg); UROBILINOGEN,URINE 0.2 E.U/dL (0.2-1.0)
[2022-01-20 18:37] LABS: UA COLLECTION TYPE CLN CATCH MIDSTREAM
[2022-01-20 18:38] LABS: BACTERIA,URINE 1+ /HPF (Neg); MUCUS STRANDS FEW /LPF (Neg); SQUAMOUS EPITHELIAL CELL,UR FEW /LPF (FEW); WBC,URINE TNTC /HPF (0-4)
[2022-01-20 18:39] LABS: WBC CLUMPS,URINE FEW /HPF (NEGATIVE)
[2022-01-20 18:54] LABS: ALANINE AMINOTRANSFERASE 34 U/L (12-78); ALBUMIN 4.9 G/DL (3.4-5.0); ALBUMIN/GLOBULIN RATIO 1.9 (1.1-1.5); ALKALINE PHOSPHATASE 70 IU/L (46-116); ANION GAP 11 (8-16); ASPARTATE AMINO TRANSFERASE 23 U/L (10-37); BILIRUBIN,TOTAL 0.7 MG/DL (0.1-1.0); BLOOD UREA NITROGEN 19 MG/DL (7-18); BUN/CREATININE RATIO 20.2 (6.6-38.0); CALCIUM 9.5 MG/DL (8.5-10.1); CHLORIDE 104 MMOL/L (99-107); CREATININE 0.94 MG/DL (0.40-0.90); GLUCOSE 123 MG/DL (70-104); POTASSIUM 4.2 MMOL/L (3.5-5.1); SODIUM 139 MMOL/L (135-145); TOTAL CARBON DIOXIDE 24.2 MMOL/L (24-32); TOTAL PROTEIN 7.5 G/DL (6.4-8.2); eGFR 61 ML/MIN
[2022-01-20] MEDS ORDERED: HYDROcodone/acetaminophen 5mg/325mg tablet PO ONE (21:05)
[2022-01-21] MEDS ORDERED: mag hydrox/Alum hydrox/simeth 30ml oral suspension PO ONE (02:35)
[2022-01-21] MEDS ORDERED: cephalexin 250mg capsule PO ONE (02:35)
[2022-01-21 03:22] VITALS: BP 148/79
[2022-01-21] MEDS ORDERED: SENN1TAB33 PO (03:39)
[2022-01-21] MEDS ORDERED: POLY17PO10 PO (03:39)
[2022-01-21] MEDS ORDERED: FLUC150T PO (03:39)
[2022-01-21] MEDS ORDERED: CEPH-585 PO (03:39)
== END 2022-01-21 03:45 | disposition home or self-care (01) ==
LOC: ER 17:19
DX: N39.0 Urinary tract infection, site not specified (principal); R10.9 Unspecified abdominal pain; K59.00 Constipation, unspecified; R50.9 Fever, unspecified; I12.9 Hypertensive chronic kidney disease with stage 1 through stage 4 chronic kidney disease, or unspecified chronic kidney disease; E78.00 Pure hypercholesterolemia, unspecified; N18.9 Chronic kidney disease, unspecified; K31.84 Gastroparesis; F41.9 Anxiety disorder, unspecified; Z90.49 Acquired absence of other specified parts of digestive tract; Z90.710 Acquired absence of both cervix and uterus; Z88.8 Allergy status to other drugs, medicaments and biological substances
CPT/HCPCS: 36415; 74176; 80053; 81001; 85025; 87077; 87088; 87186; 99284

== ENCOUNTER 2023-05-17 15:03 | Emergency (ER) | payer MEDICARE, MEDICAID ==
[~2023-05-17] VITALS: Ht 162.6 cm; Wt 48.6 kg
[~2023-05-17 15:03] MED LIST changes: +APIX2.5T PO; +CALC-212 PO; +CHOL400T32 PO; +ONDA8TAB13 PO; -PANT40TA39 PO; +PANT40TA54 PO; -POTA-207 PO; +ZOLP10TA; -ZOLP10TA5 PO
[2023-05-17 15:52] LABS: ANION GAP 11 (8-16); BLOOD UREA NITROGEN 18 MG/DL (7-18); BUN/CREATININE RATIO 15.7 (10.0-20.0); CALCIUM 8.4 MG/DL (8.5-10.1); CHLORIDE 99 MMOL/L (99-107); CREATININE 1.15 MG/DL (0.40-0.90); GLUCOSE 104 MG/DL (70-104); POTASSIUM 3.8 MMOL/L (3.5-5.1); PRO BRAIN NATRIURETIC PEPTIDE 189 PG/ML (0-125); SODIUM 136 MMOL/L (135-145); TOTAL CARBON DIOXIDE 25.9 MMOL/L (24-32); eCRCL 39 ML/MIN; eGFR 48 ML/MIN
[2023-05-17 16:32] LABS: BASOPHILS % (AUTO) 0.3 % (0-1); EOSINOPHILS % (AUTO) 1.1 % (0-6); HEMATOCRIT 36.4 % (35.0-45.0); HEMOGLOBIN 12.4 g/dl (12.0-16.0); LYMPHOCYTES # (AUTO) 1.1 X10'3 (1.1-4.8); LYMPHOCYTES % (AUTO) 24.5 % (21-51); MEAN CORPUSCULAR HEMOGLOBIN 35.3 PG (27.0-31.0); MEAN CORPUSCULAR HGB CONC 34.1 g/dL (33.0-36.5); MEAN CORPUSCULAR VOLUME 103.5 FL (78-98); MEAN PLATELET VOLUME 7.4 FL (7.4-10.4); MONOCYTES # (AUTO) 0.3 X10'3 (0-0.9); MONOCYTES % (AUTO) 6.5 % (2-12); NEUTROPHILS # (AUTO) 2.9 X10'3 (1.8-7.7); NEUTROPHILS % (AUTO) 67.6 % (42-75); PLATELET COUNT 205 X10'3 (140-440); RED BLOOD COUNT 3.52 X10'6 (4.20-5.60); RED CELL DISTRIBUTION WIDTH 13.6 % (11.5-14.5); WHITE BLOOD COUNT 4.3 X10'3 (4.5-11.0)
[2023-05-17 16:48] LABS: ALANINE AMINOTRANSFERASE 35 U/L (12-78); ALBUMIN 5.4 G/DL (3.4-5.0); ALBUMIN/GLOBULIN RATIO 1.8 (1.1-1.5); ALKALINE PHOSPHATASE 74 IU/L (46-116); AMYLASE 93 U/L (25-115); ANION GAP 8 (8-16); ASPARTATE AMINO TRANSFERASE 25 U/L (10-37); BILIRUBIN,TOTAL 0.6 MG/DL (0.1-1.0); BLOOD UREA NITROGEN 17 MG/DL (7-18); BUN/CREATININE RATIO 15.6 (10.0-20.0); CALCIUM 8.6 MG/DL (8.5-10.1); CHLORIDE 98 MMOL/L (99-107); CREATININE 1.09 MG/DL (0.40-0.90); GLUCOSE 107 MG/DL (70-104); LIPASE 95 U/L (16-77); POTASSIUM 3.9 MMOL/L (3.5-5.1); SODIUM 135 MMOL/L (135-145); TOTAL CARBON DIOXIDE 28.8 MMOL/L (24-32); TOTAL PROTEIN 8.4 G/DL (6.4-8.2); eCRCL 42 ML/MIN; eGFR 51 ML/MIN
[2023-05-17 19:22] LABS: BILIRUBIN,URINE NEGATIVE (Neg); CLARITY,URINE CLEAR (Clear); COLOR,URINE YELLOW (Yellow); GLUCOSE, URINE NEGATIVE (Neg); KETONES,URINE 15 mg/dl (Neg); LEUKOCYTE ESTERASE ,URINE NEGATIVE (Neg); NITRITES, URINE NEGATIVE (Neg); OCCULT BLOOD,URINE NEGATIVE (Neg); PH,URINE 5.5 (4.8-8.0); PROTEIN,URINE NEGATIVE (Neg); UROBILINOGEN,URINE 0.2 E.U/dL (0.2-1.0)
[2023-05-17 19:24] LABS: UA COLLECTION TYPE CLN CATCH MIDSTREAM
[2023-05-17 19:54] VITALS: BP 160/86; PULSE 88; RESP 18; TEMP 98.4; O2SAT 98
[2023-05-17] MEDS ORDERED: LIDO15SO3 PO (20:20)
[2023-05-17] MEDS ORDERED: MAG355OR18 PO (20:20)
[2023-05-17] MEDS ORDERED: DICY10CA88 PO (20:20)
[2023-05-17] MEDS: LIDOcaine Viscous 15ml cup MM PRN (21:01)
[2023-05-17] MEDS: mag hydrox/Alum hydrox/simeth 30ml oral suspension PO ONE (21:08)
[2023-05-17] MEDS: dicyclomine 10 MG capsule PO ONE (21:08)
[2023-05-17] MEDS: HYDROcodone/acetaminophen 5mg/325mg tablet PO ONE (21:09)
== END 2023-05-17 21:21 | disposition home or self-care (01) ==
LOC: ER 15:03
DX: K21.9 Gastro-esophageal reflux disease without esophagitis (principal); R10.13 Epigastric pain; E78.00 Pure hypercholesterolemia, unspecified; I12.9 Hypertensive chronic kidney disease with stage 1 through stage 4 chronic kidney disease, or unspecified chronic kidney disease; E13.22 Other specified diabetes mellitus with diabetic chronic kidney disease; N18.9 Chronic kidney disease, unspecified; Z88.8 Allergy status to other drugs, medicaments and biological substances; Z88.2 Allergy status to sulfonamides; Z79.899 Other long term (current) drug therapy
CPT/HCPCS: 36415; 71045; 74176; 80048; 80053; 81003; 82150; 83690; 83880; 84484; 85025; 93005; 99285

== ENCOUNTER 2023-10-21 10:54 | Day surgery (SDC) | payer MEDICARE, MEDICAID ==
[~2023-10-21] VITALS: Ht 162.6 cm; Wt 48.0 kg
[~2023-10-21 10:54] MED LIST changes: -APIX2.5T PO; -CALC-212 PO; +CHOL20004 PO; -CHOL400T32 PO; +HYDR20TA PO; -LOP25T PO; +METO-539 PO; +ONDA-245 PO; -ONDA8TAB13 PO; -PANT40TA54 PO; +PHYT100T PO; -TOP100T PO; +TOPI100C5 PO; +TOPI25CA12 PO; +TRAZ-256 PO; -ZOLP10TA
[2023-10-21 11:30] VITALS: BP 118/76; PULSE 76; RESP 16
[2023-10-21] MEDS ORDERED: fentaNYL/PF 50MCG/1 ML 2ML syringe ONE (11:43)
[2023-10-21] MEDS ORDERED: MIDAZolam 1 MG/ML 5ML VIAL ONE (11:43)
[2023-10-21] MEDS ORDERED: diphenhydrAMINE 50 mg/ml inj ONE (11:43)
[2023-10-21 12:19] VITALS: BP 101/54; PULSE 57; RESP 15; O2SAT 100
[2023-10-21 12:28] VITALS: BP 95/55; PULSE 61; RESP 15; O2SAT 100
[2023-10-21 12:38] VITALS: BP 98/52; PULSE 59; RESP 15; O2SAT 100
[2023-10-21 12:48] VITALS: BP 102/54; PULSE 62; RESP 16; O2SAT 100
== END 2023-10-21 13:15 | disposition home or self-care (01) ==
LOC: GI LAB 10:54
PROVIDERS: ATTEND Internal Medicine Gastroenterology
DX: K92.1 Melena (principal); K29.70 Gastritis, unspecified, without bleeding; Z98.0 Intestinal bypass and anastomosis status
CPT/HCPCS: 43239; 45378; A4620; G0500; J1200; J2250; J3010; J7030; Z7512; 88305; 99152

== ENCOUNTER 2024-06-07 14:40 | Emergency (ER) | payer MEDICARE, MEDICAID ==
[~2024-06-07] VITALS: Ht 165.1 cm; Wt 65.9 kg
[2024-06-07 16:49] LABS: BASOPHILS % (AUTO) 0.4 % (0-1); EOSINOPHILS # (AUTO) 0.1 X10'3 (0-0.9); EOSINOPHILS % (AUTO) 0.7 % (0-6); HEMATOCRIT 34.1 % (35.0-45.0); HEMOGLOBIN 11.4 g/dl (12.0-16.0); LYMPHOCYTES % (AUTO) 12.1 % (21-51); MEAN CORPUSCULAR HGB CONC 33.4 g/dL (33.0-36.5); MEAN CORPUSCULAR VOLUME 98.8 FL (78-98); MEAN PLATELET VOLUME 7.8 FL (7.4-10.4); MONOCYTES # (AUTO) 0.3 X10'3 (0-0.9); MONOCYTES % (AUTO) 4.2 % (2-12); NEUTROPHILS # (AUTO) 6.6 X10'3 (1.8-7.7); NEUTROPHILS % (AUTO) 82.6 % (42-75); PLATELET COUNT 225 X10'3 (140-440); RED BLOOD COUNT 3.45 X10'6 (4.20-5.60); RED CELL DISTRIBUTION WIDTH 14.3 % (11.5-14.5)
[2024-06-07] MEDS: morphine 4 MG/ML inj SYRINge IV ONE (16:57)
[2024-06-07] MEDS: ondansetron/PF 4mg/2ml inj IV ONE (16:57)
[2024-06-07 18:08] LABS: ALANINE AMINOTRANSFERASE 28 U/L (12-78); ALBUMIN 4.8 G/DL (3.4-5.0); ALBUMIN/GLOBULIN RATIO 1.4 (1.1-1.5); ALKALINE PHOSPHATASE 100 IU/L (46-116); ANION GAP 12 (8-16); ASPARTATE AMINO TRANSFERASE 15 U/L (10-37); BILIRUBIN,TOTAL 0.5 MG/DL (0.1-1.0); BLOOD UREA NITROGEN 22 MG/DL (7-18); BUN/CREATININE RATIO 24.7 (10.0-20.0); CHLORIDE 103 MMOL/L (99-107); CREATININE 0.89 MG/DL (0.40-0.90); GLUCOSE 87 MG/DL (70-104); LIPASE 74 U/L (16-77); POTASSIUM 3.9 MMOL/L (3.5-5.1); SODIUM 138 MMOL/L (135-145); TOTAL CARBON DIOXIDE 22.8 MMOL/L (24-32); TOTAL PROTEIN 8.2 G/DL (6.4-8.2); eCRCL 59 ML/MIN; eGFR 64 ML/MIN
[2024-06-07] MEDS ORDERED: LEVO-65 PO (18:23)
[2024-06-07] MEDS ORDERED: DET2LAC PO (18:23)
[2024-06-07] MEDS ORDERED: PHEN-716 PO (18:23)
[2024-06-07] MEDS: morphine 2 MG/ML inj. syringe IV ONE (18:43)
[2024-06-07] MEDS: tolterodine 2mg SR capsule (24hr) PO ONE (18:44)
[2024-06-07] MEDS: phenazopyridine 100mg tablet PO ONE (18:44)
[2024-06-07] MEDS ORDERED: MICO45CR73 VG (18:58)
[2024-06-07 19:00] VITALS: BP 115/70; PULSE 76; RESP 16; TEMP 97.2; O2SAT 100
== END 2024-06-07 19:03 | disposition home or self-care (01) ==
LOC: ER 14:42
DX: R30.0 Dysuria (principal); E78.00 Pure hypercholesterolemia, unspecified; I12.9 Hypertensive chronic kidney disease with stage 1 through stage 4 chronic kidney disease, or unspecified chronic kidney disease; N18.9 Chronic kidney disease, unspecified; Z90.710 Acquired absence of both cervix and uterus; Z90.49 Acquired absence of other specified parts of digestive tract; Z88.2 Allergy status to sulfonamides; Z88.5 Allergy status to narcotic agent
CPT/HCPCS: 36415; 74176; 80053; 83690; 85025; 96374; 96375; 99285; J2270; J2405

== ENCOUNTER 2024-11-21 14:04 | Outpatient (CLI) | payer MEDICARE, MEDICAID ==
[~2024-11-21 14:04] MED LIST changes: +MICO45CR73 VG; +PHEN-716 PO
[2024-11-21 14:38] LABS: MEAN PLATELET VOLUME 6.5 FL (7.4-10.4); RED CELL DISTRIBUTION WIDTH 15.3 % (11.5-14.5)
[2024-11-21 14:52] LABS: CREATININE 1.05 MG/DL (0.40-0.90); TOTAL CARBON DIOXIDE 20.9 MMOL/L (24-32); eGFR 53 ML/MIN
== END 2024-11-21 23:59 | disposition home or self-care (01) ==
LOC: RAD 14:04
PROVIDERS: ATTEND Nurse Practitioner Family
DX: D72.818 Other decreased white blood cell count (principal); R71.8 Other abnormality of red blood cells; D72.810 Lymphocytopenia; E87.1 Hypo-osmolality and hyponatremia
CPT/HCPCS: 80053; 85025

== ENCOUNTER 2024-12-27 14:07 | Outpatient (CLI) | payer MEDICARE, MEDICAID ==
[2024-12-27 14:31] LABS: MEAN PLATELET VOLUME 7.4 FL (7.4-10.4); RED CELL DISTRIBUTION WIDTH 15.2 % (11.5-14.5)
[2024-12-27 14:56] LABS: CREATININE 0.88 MG/DL (0.40-0.90); TOTAL CARBON DIOXIDE 24.2 MMOL/L (24-32); eGFR 65 ML/MIN
== END 2024-12-27 23:59 | disposition home or self-care (01) ==
LOC: RAD 14:07
PROVIDERS: ATTEND Nurse Practitioner Family
DX: Z01.812 Encounter for preprocedural laboratory examination (principal); K92.2 Gastrointestinal hemorrhage, unspecified
CPT/HCPCS: 36415; 80053; 84439; 84443; 85025

== ENCOUNTER 2025-01-23 14:23 | Outpatient (CLI) | payer MEDICARE, MEDICAID ==
[2025-01-23 15:17] LABS: MEAN PLATELET VOLUME 8.0 FL (7.4-10.4); RED CELL DISTRIBUTION WIDTH 16.5 % (11.5-14.5)
[2025-01-23 15:51] LABS: % IRON SATURATION 1 % (11-46)
[2025-01-23 16:05] LABS: CREATININE 1.00 MG/DL (0.40-0.90); TOTAL CARBON DIOXIDE 20.2 MMOL/L (24-32); eGFR 56 ML/MIN
[2025-01-23 16:30] LABS: LYMPHOCYTES % (MANUAL) 16.0 % (21-51); MONOCYTES % (MANUAL) 5.0 % (2-12); NEUTROPHILS % (MANUAL) 79.0 % (42-75); PLATELET ESTIMATE NORMAL
[2025-01-23] MEDS ORDERED: MAGN100T PO (23:56)
[2025-01-23] MEDS ORDERED: GINK120C3 PO (23:56)
== END 2025-01-23 23:59 | disposition home or self-care (01) ==
LOC: LAB 14:23
PROVIDERS: ATTEND Surgery
DX: K76.89 Other specified diseases of liver (principal); K52.9 Noninfective gastroenteritis and colitis, unspecified; K50.919 Crohn's disease, unspecified, with unspecified complications
CPT/HCPCS: 36415; 80053; 82728; 83540; 83550; 84466; 85007; 85025; 85651; 86140

== ENCOUNTER 2025-02-27 11:55 | Outpatient (CLI) | payer MEDICARE, MEDICAID ==
[~2025-02-27 11:55] MED LIST changes: -BALS750C PO; +GINK120C3 PO; -HYDR20TA PO; +MAGN100T PO; -MICO45CR73 VG; +PANT-47 PO; -PHEN-716 PO; -TOPI25CA12 PO
[2025-02-27 12:55] LABS: ABSOLUTE RETICS # 30600 /CUMM (23000-93000); MEAN PLATELET VOLUME 7.7 FL (7.4-10.4); RED CELL DISTRIBUTION WIDTH 19.8 % (11.5-14.5)
[2025-02-27 13:12] LABS: CREATININE 1.02 MG/DL (0.40-0.90); TOTAL CARBON DIOXIDE 22.2 MMOL/L (24-32); eGFR 55 ML/MIN
[2025-02-27 13:31] LABS: PLATELET ESTIMATE NORMAL
[2025-02-27 13:33] LABS: LACTATE DEHYDROGENASE 280 U/L (81-234)
== END 2025-02-27 23:59 | disposition home or self-care (01) ==
LOC: LAB 11:55
PROVIDERS: ATTEND Internal Medicine
DX: D72.819 Decreased white blood cell count, unspecified (principal)
CPT/HCPCS: 36415; 80053; 82607; 82728; 82746; 83615; 84443; 84466; 85008; 85025; 85045; 85651; 86140

== ENCOUNTER 2025-03-26 11:24 | Outpatient (CLI) | payer MEDICARE, MEDICAID ==
[2025-03-26 11:50] LABS: MEAN PLATELET VOLUME 6.6 FL (7.4-10.4); RED CELL DISTRIBUTION WIDTH 20.2 % (11.5-14.5)
[2025-03-26 12:15] LABS: CREATININE 1.27 MG/DL (0.40-0.90); TOTAL CARBON DIOXIDE 23.2 MMOL/L (24-32); eGFR 42 ML/MIN
[2025-03-26 12:17] LABS: PLATELET ESTIMATE NORMAL
[2025-03-28] MEDS ORDERED: PANT40TA54 PO (01:01)
[2025-03-28] MEDS ORDERED: MECO10005 PO (01:01)
[2025-03-28] MEDS ORDERED: VITA1TAB97 PO (01:01)
[2025-03-28] MEDS ORDERED: BALS750C PO (01:01)
== END 2025-03-26 23:59 | disposition home or self-care (01) ==
LOC: LAB 11:24
PROVIDERS: ATTEND Student in an Organized Health Care Education/Training Program
DX: K51.90 Ulcerative colitis, unspecified, without complications (principal); N18.2 Chronic kidney disease, stage 2 (mild); R53.83 Other fatigue; E03.9 Hypothyroidism, unspecified
CPT/HCPCS: 80053; 83036; 84439; 84443; 85008; 85025